=== PATIENT | female | born 1935 | race Caucasian/White ===

== ENCOUNTER 2017-07-06 12:39 | Emergency (ER) | payer MEDICARE, BC ==
[2017-07-06 13:10] LABS: #Basophils 0.1 thou/uL (0.0-0.2); #Eosinphils 0.1 thou/uL (0.0-0.7); #Lymphocytes 1.8 thou/uL (1.20-3.40); #Monocytes 0.8 thou/uL (0.11-0.59); #Neutrophils 5.3 thou/uL (1.40-6.50); %Basophils 0.9 % (0.0-1.0); %Eosinophils 1.1 % (0.0-10.0); %Lymphocytes 22.6 % (21.0-51.0); %Monocytes 9.5 % (0.0-10.0); Hematocrit 33.9 % (36.0-47.0); Mean Platelet Volume 5.4 fL (7.4-10.4); Red Blood Cell (RBC) Count 3.51 mill/uL (4.20-5.40); White Blood Cell (WBC) Count 8.1 thou/uL (4.8-10.8)
[2017-07-06 13:32] LABS: ALT (SGPT) 8 U/L (8-55); AST (SGOT) 24 U/L (5-34); Alkaline Phosphatase 59 U/L (40-150); Anion Gap 13 mmol/L (10-20); BUN (Urea Nitrogen) 13 mg/dL (9.8-20.1); Bilirubin, Total 0.3 mg/dL (0.2-1.2); Calc. Creatinine Clearance 0 mL/min (70-130); Calcium 8.9 mg/dL (7.8-10.44); Carbon Dioxide 25 mmol/L (23-31); Chloride 100 mmol/L (98-107); Estimated GFR-MDRD 59; Globulin 2.5 g/dL (2.4-3.5); Protein, Total 6.5 g/dL (6.0-8.3)
[2017-07-06 13:37] LABS: Troponin I 0.019 ng/mL (< 0.028)
--- NOTE | 2017-07-06 13:40 | RAD ---
1 VIEW CHEST: Date: 07/06/17 COMPARISON: 01/25/17, 05/26/17. HISTORY: Past medical history of dyspnea. FINDINGS: Atherosclerosis of aorta. Stable cardiac silhouette. Pulmonary vessels and hilum are normal. Costoph renic angles are clear. Stable hyperinflation. No consolidation or pneumothorax. Cervical fusion cheo dware is noted. IMPRESSION: Hyperinflation. Chronic changes. POS: [facility]
== END 2017-07-06 14:53 | disposition home or self-care (01) ==
LOC: ERS 12:39
DX: J44.9 Chronic obstructive pulmonary disease, unspecified (principal); R60.0 Localized edema; I50.9 Heart failure, unspecified; F17.210 Nicotine dependence, cigarettes, uncomplicated
CPT/HCPCS: 71010; 80053; 82553; 83880; 84484; 85025; 93005; 94760

== ENCOUNTER 2017-08-05 10:29 | Outpatient (CLI) | payer MEDICARE, BC ==
--- NOTE | 2017-08-05 11:03 | RAD ---
FRONTAL AND LATERAL IMAGING CHEST: Date: 08-05-17 Comparison: 05-26-17 History: Shortness of breath. FINDINGS: Lungs are hyperinflated, evidence of air trapping. There are prominent emphysematous changes seen th roughout both lungs, not significantly changed. No pneumothorax, pleural fluid, lobar consolidation or alveolar edema. IMPRESSION: Interstitial prominence and pulmonary hyperinflation suggests COPD in the proper clinical setting. N o definite interval change. POS: [facility]
== END 2017-08-05 10:30 | disposition home or self-care (01) ==
LOC: RAD 10:29
PROVIDERS: ATTEND Internal Medicine Pulmonary Disease
DX: R06.00 Dyspnea, unspecified (principal)
CPT/HCPCS: 71020

== ENCOUNTER 2017-08-29 15:49 | Inpatient (IN) | payer MEDICARE, BC ==
[2017-08-29 16:42] LABS: #Basophils 0.1 thou/uL (0.0-0.2); #Eosinphils 0.1 thou/uL (0.0-0.7); #Lymphocytes 1.2 thou/uL (1.20-3.40); #Monocytes 0.8 thou/uL (0.11-0.59); #Neutrophils 8.1 thou/uL (1.40-6.50); %Basophils 0.6 % (0.0-1.0); %Eosinophils 1.2 % (0.0-10.0); %Lymphocytes 11.6 % (21.0-51.0); %Monocytes 7.4 % (0.0-10.0); Hematocrit 33.1 % (36.0-47.0); Mean Platelet Volume 5.4 fL (7.4-10.4); Red Blood Cell (RBC) Count 3.46 mill/uL (4.20-5.40); White Blood Cell (WBC) Count 10.2 thou/uL (4.8-10.8)
[2017-08-29] MEDS ORDERED: Water For Inject, Bacteriostat 30 ML ONE (16:52)
[2017-08-29] MEDS ORDERED: methylPREDNISolone Sod Succ/PF 125 MG/2 ML VIAL ONE (16:52)
[2017-08-29 16:55] LABS: Lactic Acid - Sepsis 1.3 mmol/L (0.5-2.2)
[2017-08-29 17:01] LABS: ALT (SGPT) 15 U/L (8-55); AST (SGOT) 33 U/L (5-34); Alkaline Phosphatase 75 U/L (40-150); Anion Gap 13 mmol/L (10-20); BUN (Urea Nitrogen) 14 mg/dL (9.8-20.1); Bilirubin, Total 0.2 mg/dL (0.2-1.2); CK (CPK) 73 U/L (29-168); Calc. Creatinine Clearance 0 mL/min (70-130); Calcium 9.3 mg/dL (7.8-10.44); Carbon Dioxide 29 mmol/L (23-31); Chloride 96 mmol/L (98-107); Estimated GFR-MDRD 44; Globulin 2.9 g/dL (2.4-3.5); Protein, Total 7.2 g/dL (6.0-8.3)
[2017-08-29 17:05] LABS: Troponin I 0.052 ng/mL (< 0.028)
--- NOTE | 2017-08-29 17:46 | RAD ---
CHEST TWO VIEWS: 08/29/17 HISTORY: Cough. COMPARISON: 08/05/17. FINDINGS: The cardiac silhouette is upper limits of normal. Lungs remain hyperinflated. Extensive parenchymal s carring at the lung bases, left greater than right is similar in appearance to the prior study, with blunting of the left lateral costophrenic angle. Mediastinum is midline with aortic calcification and postoperative changes. There are also postoperative changes of the cervical spine. No lobar consolid ation, pneumothorax or pleural fluid are visible. IMPRESSION: COPD, postoperative changes, and other chronic type findings are stable. POS: [facility]
[2017-08-29] MEDS ORDERED: Albuterol Sulfate 2.5 mg/0.5 ml Neb ONE (18:00)
[2017-08-29] MEDS ORDERED: Ondansetron HCl/PF 4 MG/2 ML Vial IVP PRN (18:29)
[2017-08-29] MEDS ORDERED: Senokot 8.6 MG TAB PO PRN (18:29)
[2017-08-29] MEDS ORDERED: Bisacodyl 5 MG TAB PO PRN (18:29)
[2017-08-29 20:03] LABS: Troponin I 0.053 ng/mL (< 0.028)
[2017-08-29 22:06] VITALS: BMI 18.1
[2017-08-29 22:55] LABS: Troponin I 0.037 ng/mL (< 0.028)
--- NOTE | 2017-08-30 01:59 | HP ---
CHIEF COMPLAINT: Shortness of breath with cough x1 week. HISTORY OF PRESENT ILLNESS: This is a 81-year-old female who has a past medical history significant for COPD, non-oxygen dependent as well as hypertension as well as nicotine dependence, who presents t o the hospital due to shortness of breath and cough for the past 1 week. The patient states that the cough and shortness of breath has been getting progressively worse over the past couple of weeks. T he patient states that the sputum production has worsened and the color of the sputum has changed to yellowish greenish in color. Along with that she has been having shortness of breath that was curren tly on exertion, but now is occurring at rest. She says that she tried using inhalers at home with n o relief so because it was not getting better. She decided to come to the hospital for further evalu ation and management. She denies any chest pain, fevers, chills or palpitations at this time. She a lso denies any orthopnea or lower extremity swelling. PAST MEDICAL HISTORY: As stated. See HPI. Other past medical history includes lung cancer that was diagnosed approximately 15 years ago. PAST SURGICAL HISTORY: Includes hysterectomy as well as appendectomy and tonsillectomy. FAMILY HISTORY: Significant for liver cancer as well as cerebrovascular disease and lung cancer. SOCIAL HISTORY: The patient still continues to smoke. Denies any recreational drug use or alcohol u se. REVIEW OF SYSTEMS: A 14-point review of systems were reviewed and were negative other than what was mentioned in the HPI. HOME MEDICATIONS: at this time. PHYSICAL EXAMINATION: VITAL SIGNS: Blood pressure was 154/74, pulse 100, respiratory rate was 18, temperature was 98, faye ent was saturating 99% oxygen on 2 liters nasal cannula. GENERAL: The patient appeared to be in mild distress, was alert, awake, oriented x3, appeared uncomf ortable, was alert and was able to engage in the conversation during the time of the examination. HEENT: HEAD: Normocephalic, atraumatic. Eyes: Pupils are round and reactive to light. Extraocula r muscles are intact. Conjunctivae was pink. Sclerae was nonicteric. Mouth: Oral mucosa is pink a nd moist. No erythematous was noted. NECK: Neck was soft and supple, no JVD, no carotid bruits, lymphadenopathy. CARDIOVASCULAR: Regular rate and rhythm. S1, S2 sounds were heard. RESPIRATORY: The patient had diffuse bilateral significant wheezing throughout. The patient was not use any accessory muscles at this time. ABDOMEN: Positive bowel sounds, soft, nontender, nondistended. EXTREMITIES: Pulses were 2+ both dorsalis and radial pulse. NEUROLOGIC: Cranial nerves II-XII grossly intact. LABORATORY DATA: White blood cell count was 10.2, hemoglobin 11.0, hematocrit was 33.1, platelet cou nt was 577. Sodium was 134, potassium 4.2, chloride was 96, bicarbonate was 29, BUN was 14, creatini ne was 1.19. Troponin was 0.52. BNP was 263. Chest x-ray did not show any acute abnormalities and otherwise was suggestive of COPD. ASSESSMENT AND PLAN: 1. Shortness of breath with cough, likely secondary to chronic obstructive pulmonary disease exacerb ation. 2. Mildly elevated troponins, likely secondary to #1. 3. Hypertension. 4. Nicotine dependence. The patient is currently hemodynamically stable. She states that she is doing slightly better than w hen she initially came in. We will continue with Solu-Medrol IV q.6 hours as well as DuoNebs schedul ed as well as p.r.n. We will also start the patient on IV antibiotics for the COPD exacerbation. We will place the patient on telemetry. We will also trend troponins, although I do believe this is li reid secondary to chronic obstructive pulmonary disease exacerbation. We will monitor accordingly. We will continue to educate the patient on the importance of tobacco cessation and we will reconcile medication at the medicine reconciliation.
[2017-08-30 06:22] LABS: #Lymphocytes 0.2 thou/uL (1.20-3.40); #Monocytes 0.1 thou/uL (0.11-0.59); #Neutrophils 5.7 thou/uL (1.40-6.50); %Eosinophils 0.1 % (0.0-10.0); %Lymphocytes 3.4 % (21.0-51.0); %Monocytes 1.2 % (0.0-10.0); Hematocrit 29.5 % (36.0-47.0); Mean Platelet Volume 5.6 fL (7.4-10.4); Red Blood Cell (RBC) Count 3.08 mill/uL (4.20-5.40)
[2017-08-30 06:38] LABS: Anion Gap 8 mmol/L (10-20); BUN (Urea Nitrogen) 13 mg/dL (9.8-20.1); Calc. Creatinine Clearance 48 mL/min (70-130); Calcium 8.5 mg/dL (7.8-10.44); Carbon Dioxide 32 mmol/L (23-31); Chloride 95 mmol/L (98-107); Estimated GFR-MDRD 61
[2017-08-30] MEDS: Enoxaparin Sodium 40 MG/0.4 ML SYRINGE SC SCH (08:28)
[2017-08-30] MEDS ORDERED: FLU VACC TS2017-18 (>65YR) 0.5 ML SYRINGE IM ONE (09:00)
[2017-08-30] MEDS ORDERED: Non-Formulary Item 1 EACH (Ondansetron Hcl [Zofran] 4 MG) PO PRN (12:32)
[2017-08-30] MEDS ORDERED: Ondansetron ODT 4 MG TAB PO PRN (12:42)
--- NOTE | 2017-08-30 12:50 | PDOC.PN ---
- Subjective Encounter Start Date: 08/30/17 Encounter Start Time: 08:40 Pt seen for followup re: COPD exacerbation. Still has SOBOE, slightly better. Cough+. No nausea or vomiting. - Objective MAR Reviewed: Yes Vital Signs & Weight: Vital Signs (12 hours) Temp Pulse Resp BP Pulse Ox 08/30/17 11:42 84 18 99 08/30/17 08:30 98.2 F 85 18 162/73 H 100 08/30/17 06:25 80 16 97 08/30/17 04:00 97.7 F 79 18 165/70 H 96 Weight Weight 130 lb I&O: 08/29/17 08/30/17 08/31/17 06:59 06:59 06:59 Intake Total 850 Output Total 1300 Balance -450 Result Diagrams: 08/30/17 05:07 08/30/17 05:07 EKG Reviewed by me: Yes (Tele: NSR) Phys Exam - Physical Examination Constitutional: NAD HEENT: PERRLA, moist MMs, sclera anicteric, oral pharynx no lesions Neck: no nodes, no JVD, supple, full ROM Respiratory: no wheezing, no rales, wheezing present Cardiovascular: RRR, no rub Gastrointestinal: soft, non-tender, positive bowel sounds Musculoskeletal: pulses present Neurological: moves all 4 limbs Lymphatic: no nodes Psychiatric: normal affect, A&O x 3 Skin: no rash, normal turgor, cap refill <2 seconds Dx/Plan (1) COPD exacerbation Code(s): J44.1 - CHRONIC OBSTRUCTIVE PULMONARY DISEASE W (ACUTE) EXACERBATION Status: Acute (2) Acute and chronic respiratory failure Code(s): J96.20 - ACUTE AND CHR RESP FAILURE, UNSP W HYPOXIA OR HYPERCAPNIA Status: Acute (3) Elevated troponin Code(s): R74.8 - ABNORMAL LEVELS OF OTHER SERUM ENZYMES Status: Acute (4) HTN (hypertension) Code(s): I10 - ESSENTIAL (PRIMARY) HYPERTENSION Status: Chronic (5) GERD (gastroesophageal reflux disease) Code(s): K21.9 - GASTRO-ESOPHAGEAL REFLUX DISEASE WITHOUT ESOPHAGITIS Status: Chronic (6) Tobacco abuse Code(s): Z72.0 - TOBACCO USE Status: Chronic - Plan continue antibiotics, PT/OT, out of bed/ambulate, DVT proph w/lovenox * . Continue oxygen, steroids, bronchodilators and antibiotics. Consult PCCM. Monitor vital signs, titrate antihypertensives as needed. Check 2D echo to r/o regional wall motion abnormalities. Continue nicotine replacement therapy. Review of Systems - Review of Systems Constitutional: negative: Fever, Chills, Sweats, Weakness, Malaise Respiratory: Cough, Shortness of Breath, SOB with Excertion, Sputum. negative: Dry, Hemoptysis, Pleuritic Pain, Wheezing Cardiovascular: negative: Chest Pain, Palpitations, Orthopnea, Paroxysmal Noc. Dyspnea, Edema, Light Headedness Gastrointestinal: negative: Nausea, Vomiting, Abdominal Pain, Diarrhea, Constipation, Melena, Hematochezia Genitourinary: negative: Dysuria, Frequency, Incontinence, Hematuria, Retention - Medications/Allergies Allergies/Adverse Reactions: Allergies Allergy/AdvReac Type Severity Reaction Status Date / Time clarithromycin [From Biaxin] Allergy Diarrhea Verified 01/25/17 17:39 Penicillins Allergy UNKNOWN Verified 01/25/17 17:39 Sulfa (Sulfonamide Allergy DIZZINESS Verified 01/25/17 17:39 Antibiotics) Medications: Current Medications Acetaminophen (Tylenol) 650 mg PO Q4H PRN PRN Reason: Headache/Fever or Pain Albuterol/Ipratropium (Duoneb) 3 ml NEB [id number] [facility] Last Admin: 08/30/17 11:42 Dose: 3 ml Albuterol/Ipratropium (Duoneb) 3 ml NEB Q4H PRN PRN Reason: SOB &/or Wheezing Bisacodyl (Dulcolax) 10 mg PO DAILYPRN PRN PRN Reason: Constipation Diltiazem HCl (Cardizem Cd) 240 mg PO 2000 [facility] Enoxaparin Sodium (Lovenox) 40 mg SC 0900 [facility] Last Admin: 08/30/17 08:28 Dose: 40 mg Furosemide (Lasix) 20 mg PO DAILY [facility] Levofloxacin 750 mg/ Device 150 mls @ 100 mls/hr IVPB Q24HR [facility] Methylprednisolone Sodium Succinate (Solu-Medrol) 40 mg IVP Q6HR [facility] Last Admin: 08/30/17 11:56 Dose: 40 mg Mometasone Furoate/Formoterol Fumar (Dulera 200 Mcg/5 Mcg Inhaler) 2 puff INH BID-RT [facility] Nicotine (Nicoderm Patch) 21 mg TD DAILY [facility] Ondansetron HCl (Zofran) 4 mg IVP Q6H PRN PRN Reason: Nausea/Vomiting Ondansetron HCl (Zofran Odt) 4 mg PO Q4H PRN PRN Reason: Nausea/Vomiting Pantoprazole Sodium (Protonix) 40 mg PO DAILY [facility] Paroxetine HCl (Paxil) 20 mg PO DAILY [facility] Paroxetine HCl (Paxil) 20 mg PO HS [facility] Senna (Senokot) 2 tab PO HSPRN PRN PRN Reason: Constipation Sodium Chloride (Flush - Normal Saline) 10 ml IVF Q12HR [facility] Sodium Chloride (Flush - Normal Saline) 10 ml IVF PRN PRN PRN Reason: Saline Flush
[2017-08-30] MEDS: Acetaminophen 325 MG TAB PO PRN ×2 (13:34→21:22)
[2017-08-30] MEDS ORDERED: guaiFENesin/Dextromethorphan 10 ML UDCUP PO PRN (14:36)
--- NOTE | 2017-08-30 17:00 | CON ---
DATE OF CONSULTATION: 08/30/2017 CONSULTING PHYSICIAN: Simone Fisher M.D. REASON FOR CONSULTATION: COPD exacerbation. HISTORY OF PRESENT ILLNESS: The patient is a 81-year-old female who was admitted to the hospital yes terday with a 2-week history of increasing shortness of breath and congestion. She is a pack and a h gabriela per day smoker who was refused to quit in the past. She has been taking prednisone and the dose is 10 mg daily at home. She has been using Symbicort, albuterol and ipratropium. She has not been t aking antibiotics at home. She has a dry cough, has difficulty clearing secretions. PAST MEDICAL HISTORY: 1. COPD. 2. Hypertension. 3. Bronchogenic lung cancer. PAST SURGICAL HISTORY: Hysterectomy, appendectomy, tonsillectomy, lobectomy. FAMILY MEDICAL HISTORY: Remarkable for liver cancer, stroke and lung cancer. MEDICATIONS: Prior to admission, these were reviewed. See chart. SOCIAL HISTORY: Smoking history as outlined above. She does not consume alcohol, does not use illic it drugs. REVIEW OF SYSTEMS: Ten-point review of systems is otherwise negative. PHYSICAL EXAMINATION: VITAL SIGNS: Temperature 97.9, pulse 94, respirations 18, O2 sat 96%, blood pressure 169/81. GENERAL: She is awake and alert. HEENT: Pupils react. Sclerae are icteric. Oropharynx clear. NECK: No JVD. LUNGS: Harsh bilateral expiratory wheezing, no accessory muscle use. CARDIOVASCULAR: S1, S2 regular. ABDOMEN: Soft, nontender. EXTREMITIES: No clubbing, cyanosis, or edema. LABORATORY DATA: White blood cell count 6, hematocrit 29.5, platelet count 442. Sodium 131, potassi um 4.1, chloride 95, CO2 32, BUN 13, creatinine 0.8, glucose 174. Troponin 0.037. Chest x-ray shows hyperinflation. ASSESSMENT: 1. Chronic obstructive pulmonary disease exacerbations 2. Tobacco abuse. PLAN: I agree with treatment with steroids, nebulization therapy, and antibiotics. We will be happy to follow.
[2017-08-30] MEDS: Mometasone/Formoterol 120 PUFF INHALER INH SCH (18:54)
[2017-08-30] MEDS: PARoxetine 20 MG TAB PO SCH (21:00)
[2017-08-30] MEDS ORDERED: Non-Formulary Item 1 EACH (Budesonide-Formoterol [Symbicort 160-4.5] 2 PUFF) INH SCH (21:00)
[2017-08-30] MEDS: Guaifenesin DM 100-10/5 ML UDCUP PO PRN (21:12)
[2017-08-31] MEDS: Mometasone/Formoterol 120 PUFF INHALER INH SCH ×2 (07:25→19:40)
[2017-08-31] MEDS ORDERED: Non-Formulary Item 1 EACH (Lansoprazole [Prevacid] 30 MG) PO SCH (09:00)
[2017-08-31] MEDS: Furosemide 20 MG TAB PO SCH (09:42)
[2017-08-31] MEDS: Nicotine 21 MG PATCH TD SCH (09:42)
[2017-08-31] MEDS: PARoxetine 20 MG TAB PO SCH ×2 (09:42→20:37)
[2017-08-31] MEDS: Enoxaparin Sodium 40 MG/0.4 ML SYRINGE SC SCH (09:43)
[2017-08-31 10:19] LABS: Mean Platelet Volume 5.7 fL (7.4-10.4)
--- NOTE | 2017-08-31 10:21 | PRG ---
DATE OF SERVICE: 08/31/2017 She is doing better. PHYSICAL EXAMINATION: VITAL SIGNS: Temperature 98.3, pulse 106, respirations 20, O2 saturation 93% on 2 liters, blood pres sure 174/85. HEENT: Unremarkable. NECK: No JVD. LUNGS: A few expiratory wheezes. CARDIAC: S1 and S2 regular. ABDOMEN: Soft. EXTREMITIES: No edema. ASSESSMENT: Chronic obstructive pulmonary disease exacerbation. RECOMMENDATIONS: Continue current treatment and hopefully she can be discharged tomorrow. I think s he can be moved off telemetry.
[2017-08-31 10:31] LABS: #Basophils 0.1 thou/uL (0.0-0.2); #Lymphocytes 0.1 thou/uL (1.20-3.40); #Monocytes 0.1 thou/uL (0.11-0.59); #Neutrophils 9.8 thou/uL (1.40-6.50); %Basophils 0.7 % (0.0-1.0); %Eosinophils 0.2 % (0.0-10.0); %Lymphocytes 0.9 % (21.0-51.0); %Monocytes 1.1 % (0.0-10.0); Red Blood Cell (RBC) Count 3.35 mill/uL (4.20-5.40); White Blood Cell (WBC) Count 10.1 thou/uL (4.8-10.8)
[2017-08-31 10:43] LABS: Anion Gap 15 mmol/L (10-20); BUN (Urea Nitrogen) 17 mg/dL (9.8-20.1); Calc. Creatinine Clearance 42 mL/min (70-130); Calcium 8.7 mg/dL (7.8-10.44); Carbon Dioxide 27 mmol/L (23-31); Chloride 92 mmol/L (98-107); Estimated GFR-MDRD 53
[2017-08-31 10:50] LABS: Troponin I 0.026 ng/mL (< 0.028)
--- NOTE | 2017-08-31 11:41 | PDOC.PN ---
- Subjective Encounter Start Date: 08/31/17 Encounter Start Time: 07:40 Pt seen for followup re: COPD exacerbation. Denies chest pain. Ongoing cough. SOBOE+. No fevers. - Objective MAR Reviewed: Yes Vital Signs & Weight: Vital Signs (12 hours) Temp Pulse Resp BP Pulse Ox 08/31/17 10:44 95 22 H 08/31/17 08:00 98.3 F 106 H 20 174/85 H 93 L 08/31/17 07:27 80 18 08/31/17 04:12 97.8 F 72 18 140/67 94 L Weight Weight 130 lb I&O: 08/30/17 08/31/17 09/01/17 06:59 06:59 06:59 Intake Total 850 1880 Output Total 1300 1100 Balance -450 780 Result Diagrams: 08/31/17 09:54 08/31/17 09:54 EKG Reviewed by me: Yes (Tele: NSR) Phys Exam - Physical Examination Constitutional: NAD HEENT: moist MMs, oral pharynx no lesions Neck: supple, full ROM Respiratory: no rales, no rhonchi, wheezing present Cardiovascular: RRR Gastrointestinal: soft, non-tender Musculoskeletal: pulses present Neurological: moves all 4 limbs Psychiatric: normal affect Skin: no rash Dx/Plan (1) COPD exacerbation Code(s): J44.1 - CHRONIC OBSTRUCTIVE PULMONARY DISEASE W (ACUTE) EXACERBATION Status: Acute (2) Acute and chronic respiratory failure Code(s): J96.20 - ACUTE AND CHR RESP FAILURE, UNSP W HYPOXIA OR HYPERCAPNIA Status: Acute (3) HTN (hypertension) Code(s): I10 - ESSENTIAL (PRIMARY) HYPERTENSION Status: Chronic (4) GERD (gastroesophageal reflux disease) Code(s): K21.9 - GASTRO-ESOPHAGEAL REFLUX DISEASE WITHOUT ESOPHAGITIS Status: Chronic (5) Tobacco abuse Code(s): Z72.0 - TOBACCO USE Status: Chronic (6) Elevated troponin Code(s): R74.8 - ABNORMAL LEVELS OF OTHER SERUM ENZYMES Status: Resolved - Plan continue antibiotics, PT/OT, out of bed/ambulate, DVT proph w/lovenox * . Continue oxygen, steroids, bronchodilators and antibiotics. Ambulate pt. 2D echo pending. Appreciate pulmonology input. Review of Systems - Review of Systems Constitutional: negative: Fever, Chills, Sweats, Weakness, Malaise Respiratory: Cough, Shortness of Breath, SOB with Excertion, Sputum, Wheezing. negative: Dry, Hemoptysis, Pleuritic Pain Cardiovascular: negative: Chest Pain, Palpitations, Orthopnea, Paroxysmal Noc. Dyspnea, Edema, Light Headedness - Medications/Allergies Allergies/Adverse Reactions: Allergies Allergy/AdvReac Type Severity Reaction Status Date / Time clarithromycin [From Biaxin] Allergy Diarrhea Verified 01/25/17 17:39 Penicillins Allergy UNKNOWN Verified 01/25/17 17:39 Sulfa (Sulfonamide Allergy DIZZINESS Verified 01/25/17 17:39 Antibiotics) Medications: Current Medications Acetaminophen (Tylenol) 650 mg PO Q4H PRN PRN Reason: Headache/Fever or Pain Last Admin: 08/30/17 21:22 Dose: 650 mg Albuterol/Ipratropium (Duoneb) 3 ml NEB [id number] Last Admin: 08/31/17 10:44 Dose: 3 ml Bisacodyl (Dulcolax) 10 mg PO DAILYPRN PRN PRN Reason: Constipation Diltiazem HCl (Cardizem Cd) 240 mg PO 1999 [facility] Last Admin: 08/30/17 20:59 Dose: 240 mg Enoxaparin Sodium (Lovenox) 40 mg SC 09 [facility] Last Admin: 08/31/17 09:43 Dose: 40 mg Furosemide (Lasix) 20 mg PO DAILY [facility] Last Admin: 08/31/17 09:42 Dose: 20 mg Guaifenesin/Dextromethorphan (Robitussin Dm) 10 ml PO Q6H PRN PRN Reason: Cough Last Admin: 08/30/17 21:12 Dose: 10 ml Levofloxacin 750 mg/ Device 150 mls @ 100 mls/hr IVPB Q24HR [facility] Last Admin: 08/30/17 21:03 Dose: 150 mls Methylprednisolone Sodium Succinate (Solu-Medrol) 40 mg IVP Q6HR [facility] Last Admin: 08/31/17 05:57 Dose: 40 mg Mometasone Furoate/Formoterol Fumar (Dulera 200 Mcg/5 Mcg Inhaler) 2 puff INH BID-RT [facility] Last Admin: 08/31/17 07:25 Dose: 2 puff Nicotine (Nicoderm Patch) 21 mg TD DAILY [facility] Last Admin: 08/31/17 09:42 Dose: 21 mg Ondansetron HCl (Zofran) 4 mg IVP Q6H PRN PRN Reason: Nausea/Vomiting Ondansetron HCl (Zofran Odt) 4 mg PO Q4H PRN PRN Reason: Nausea/Vomiting Pantoprazole Sodium (Protonix) 40 mg PO DAILY [facility] Last Admin: 08/31/17 09:42 Dose: 40 mg Paroxetine HCl (Paxil) 20 mg PO DAILY [facility] Last Admin: 08/31/17 09:42 Dose: 20 mg Paroxetine HCl (Paxil) 20 mg PO HS [facility] Last Admin: 08/30/17 21:00 Dose: 20 mg Senna (Senokot) 2 tab PO HSPRN PRN PRN Reason: Constipation Sodium Chloride (Flush - Normal Saline) 10 ml IVF Q12HR [facility] Last Admin: 08/31/17 10:47 Dose: 10 ml Sodium Chloride (Flush - Normal Saline) 10 ml IVF PRN PRN PRN Reason: Saline Flush
[2017-08-31] MEDS: Guaifenesin DM 100-10/5 ML UDCUP PO PRN (16:21)
[2017-08-31] MEDS: Acetaminophen 325 MG TAB PO PRN (22:31)
[2017-08-31] MEDS ORDERED: Nystatin 500,000 UNITS/5 ML UDCUP SSW SCH (23:15)
[2017-09-01 05:39] LABS: #Lymphocytes 0.3 thou/uL (1.20-3.40); #Monocytes 0.2 thou/uL (0.11-0.59); #Neutrophils 9.3 thou/uL (1.40-6.50); %Eosinophils 0.1 % (0.0-10.0); %Lymphocytes 3.4 % (21.0-51.0); %Monocytes 2.1 % (0.0-10.0); Hematocrit 29.8 % (36.0-47.0); Mean Platelet Volume 5.7 fL (7.4-10.4); Red Blood Cell (RBC) Count 3.13 mill/uL (4.20-5.40); White Blood Cell (WBC) Count 9.9 thou/uL (4.8-10.8)
[2017-09-01 06:00] LABS: Anion Gap 10 mmol/L (10-20); BUN (Urea Nitrogen) 20 mg/dL (9.8-20.1); Calc. Creatinine Clearance 47 mL/min (70-130); Calcium 8.6 mg/dL (7.8-10.44); Carbon Dioxide 32 mmol/L (23-31); Chloride 94 mmol/L (98-107); Estimated GFR-MDRD 60
[2017-09-01] MEDS: Mometasone/Formoterol 120 PUFF INHALER INH SCH ×2 (07:08→18:53)
[2017-09-01] MEDS ORDERED: HYDROcodone/Acetaminophen 5/325 mg Tablet PO PRN (07:43)
[2017-09-01] MEDS: Enoxaparin Sodium 40 MG/0.4 ML SYRINGE SC SCH (07:54)
[2017-09-01] MEDS: Nystatin 500,000 UNITS/5 ML UDCUP SSW SCH ×4 (07:55→21:37)
[2017-09-01] MEDS: Nicotine 21 MG PATCH TD SCH (07:55)
[2017-09-01] MEDS: PARoxetine 20 MG TAB PO SCH ×2 (07:56→21:37)
[2017-09-01] MEDS: Furosemide 20 MG TAB PO SCH (08:17)
[2017-09-01] MEDS: Guaifenesin DM 100-10/5 ML UDCUP PO PRN ×3 (09:10→23:18)
--- NOTE | 2017-09-01 09:32 | PRG ---
DATE OF SERVICE: 09/01/2017 SUBJECTIVE: Ms. Salas having coughing fit this morning. OBJECTIVE: VITAL SIGNS: On exam, temperature is 98.6, pulse 95, respiration 16, O2 sat 95%, blood pressure 180/ 95. HEENT: Unremarkable. NECK: No JVD. LUNGS: Diffuse mild wheezing. CARDIAC: S1 and S2 regular. ABDOMEN: Soft. EXTREMITIES: No edema. ASSESSMENT: Chronic obstructive pulmonary disease with exacerbation. PLAN: Continue nebulization treatments, antibiotics, and steroids. She is not ready for discharge.
--- NOTE | 2017-09-01 11:31 | PDOC.PN ---
- Subjective Encounter Start Date: 09/01/17 Encounter Start Time: 10:30 -: old records requested/rev Patient seen and examined. No overnight events, she is short of breath, not able to talk in full sentence after walk - Objective MAR Reviewed: Yes Vital Signs & Weight: Vital Signs (12 hours) Temp Pulse Resp BP Pulse Ox 09/01/17 10:18 83 24 H 80 L 09/01/17 08:00 98.6 F 95 16 188/95 H 96 09/01/17 07:10 93 L 09/01/17 07:09 83 16 93 L 09/01/17 07:08 83 16 93 L 09/01/17 04:00 98.1 F 67 20 155/77 H 94 L 09/01/17 00:00 98.1 F 85 20 172/81 H Weight Admit Weight 130 lb Weight 130 lb I&O: 08/31/17 09/01/17 09/02/17 06:59 06:59 06:59 Intake Total 1880 240 Output Total 1100 Balance 780 240 Result Diagrams: 09/01/17 04:12 09/01/17 04:12 Phys Exam - Physical Examination Constitutional: NAD HEENT: PERRLA, moist MMs, sclera anicteric Neck: no JVD, supple Respiratory: no wheezing, no rales, no rhonchi Cardiovascular: RRR, no significant murmur, no rub Gastrointestinal: soft, non-tender, no distention, positive bowel sounds Musculoskeletal: no edema, pulses present Neurological: non-focal, normal sensation Psychiatric: normal affect, A&O x 3 Skin: no rash, normal turgor Dx/Plan (1) Acute and chronic respiratory failure with hypoxia Code(s): J96.21 - ACUTE AND CHRONIC RESPIRATORY FAILURE WITH HYPOXIA Status: Acute (2) COPD exacerbation Code(s): J44.1 - CHRONIC OBSTRUCTIVE PULMONARY DISEASE W (ACUTE) EXACERBATION Status: Acute (3) Hyponatremia Code(s): E87.1 - HYPO-OSMOLALITY AND HYPONATREMIA Status: Acute (4) Anemia, normocytic normochromic Code(s): D64.9 - ANEMIA, UNSPECIFIED Status: Chronic (5) Anxiety and depression Code(s): F41.8 - OTHER SPECIFIED ANXIETY DISORDERS Status: Chronic (6) Diastolic dysfunction Code(s): I51.9 - HEART DISEASE, UNSPECIFIED Status: Chronic (7) GERD (gastroesophageal reflux disease) Code(s): K21.9 - GASTRO-ESOPHAGEAL REFLUX DISEASE WITHOUT ESOPHAGITIS Status: Chronic (8) HTN (hypertension) Code(s): I10 - ESSENTIAL (PRIMARY) HYPERTENSION Status: Chronic (9) Lung cancer Code(s): C34.90 - MALIGNANT NEOPLASM OF UNSP PART OF UNSP BRONCHUS OR LUNG Status: Chronic (10) Protein-calorie malnutrition, moderate Code(s): E44.0 - MODERATE PROTEIN-CALORIE MALNUTRITION Status: Chronic (11) Tobacco abuse Code(s): Z72.0 - TOBACCO USE Status: Chronic (12) Elevated troponin Code(s): R74.8 - ABNORMAL LEVELS OF OTHER SERUM ENZYMES Status: Resolved - Plan cont current plan of care, plan discussed w/ family, continue antibiotics, respiratory therapy * continue selected home meds * medication reviewed as below * symptomatic treatment * continue current optimum medical therapy for COPD * she needs oxygen. Review of Systems - Review of Systems Constitutional: negative: Fever, Chills, Sweats, Weakness, Malaise, Other Eyes: negative: Pain, Vision Change, Conjunctivae Inflammation, Eyelid Inflammation, Redness, Other ENT: negative: Ear Pain, Ear Discharge, Nose Pain, Nose Discharge, Nose Congestion, Mouth Pain, Mouth Swelling, Throat Pain, Throat Swelling, Other Respiratory: Cough, Shortness of Breath. negative: Dry, Hemoptysis, SOB with Excertion, Pleuritic Pain, Sputum, Wheezing Cardiovascular: negative: Chest Pain, Palpitations, Orthopnea, Paroxysmal Noc. Dyspnea, Edema, Light Headedness, Other Gastrointestinal: negative: Nausea, Vomiting, Abdominal Pain, Diarrhea, Constipation, Melena, Hematochezia, Other Genitourinary: negative: Dysuria, Frequency, Incontinence, Hematuria, Retention , Other Musculoskeletal: negative: Neck Pain, Shoulder Pain, Arm Pain, Back Pain, Hand Pain, Leg Pain, Foot Pain, Other Skin: negative: Rash, Lesions, Faraz, Bruising, Other - Medications/Allergies Allergies/Adverse Reactions: Allergies Allergy/AdvReac Type Severity Reaction Status Date / Time clarithromycin [From Biaxin] Allergy Diarrhea Verified 01/25/17 17:39 Penicillins Allergy UNKNOWN Verified 01/25/17 17:39 Sulfa (Sulfonamide Allergy DIZZINESS Verified 01/25/17 17:39 Antibiotics) Medications: Current Medications Acetaminophen (Tylenol) 650 mg PO Q4H PRN PRN Reason: Headache/Fever or Pain Last Admin: 08/31/17 22:31 Dose: 650 mg Hydrocodone Bitart/Acetaminophen ([place] 5/325) 1 tab PO Q6H PRN PRN Reason: Pain Albuterol/Ipratropium (Duoneb) 3 ml NEB [id number] Last Admin: 09/01/17 10:18 Dose: 3 ml Bisacodyl (Dulcolax) 10 mg PO DAILYPRN PRN PRN Reason: Constipation Diltiazem HCl (Cardizem Cd) 240 mg PO 2000 [facility] Last Admin: 08/31/17 20:37 Dose: 240 mg Enoxaparin Sodium (Lovenox) 40 mg SC 0900 [facility] Last Admin: 09/01/17 07:54 Dose: 40 mg Furosemide (Lasix) 20 mg PO DAILY [facility] Last Admin: 09/01/17 08:17 Dose: 20 mg Guaifenesin/Dextromethorphan (Robitussin Dm) 10 ml PO Q6H PRN PRN Reason: Cough Last Admin: 09/01/17 09:10 Dose: 10 ml Levofloxacin 750 mg/ Device 150 mls @ 100 mls/hr IVPB Q24HR [facility] Last Admin: 08/31/17 20:36 Dose: 150 mls Methylprednisolone Sodium Succinate (Solu-Medrol) 40 mg IVP Q6HR [facility] Last Admin: 09/01/17 11:20 Dose: 40 mg Mometasone Furoate/Formoterol Fumar (Dulera 200 Mcg/5 Mcg Inhaler) 2 puff INH BID-RT [facility] Last Admin: 09/01/17 07:08 Dose: 2 puff Nicotine (Nicoderm Patch) 21 mg TD DAILY [facility] Last Admin: 09/01/17 07:55 Dose: 21 mg Nystatin (Mycostatin) 500,000 units SSW QID [facility] Last Admin: 09/01/17 07:55 Dose: 500,000 units Ondansetron HCl (Zofran) 4 mg IVP Q6H PRN PRN Reason: Nausea/Vomiting Ondansetron HCl (Zofran Odt) 4 mg PO Q4H PRN PRN Reason: Nausea/Vomiting Pantoprazole Sodium (Protonix) 40 mg PO DAILY [facility] Last Admin: 09/01/17 07:55 Dose: 40 mg Paroxetine HCl (Paxil) 20 mg PO DAILY [facility] Last Admin: 09/01/17 07:56 Dose: 20 mg Paroxetine HCl (Paxil) 20 mg PO HS [facility] Last Admin: 08/31/17 20:37 Dose: 20 mg Senna (Senokot) 2 tab PO HSPRN PRN PRN Reason: Constipation Sodium Chloride (Flush - Normal Saline) 10 ml IVF Q12HR [facility] Last Admin: 09/01/17 07:59 Dose: 10 ml Sodium Chloride (Flush - Normal Saline) 10 ml IVF PRN PRN PRN Reason: Saline Flush
[2017-09-02] MEDS: Guaifenesin DM 100-10/5 ML UDCUP PO PRN ×4 (05:44→23:05)
[2017-09-02] MEDS: Mometasone/Formoterol 120 PUFF INHALER INH SCH ×2 (08:26→18:27)
[2017-09-02] MEDS: Nystatin 500,000 UNITS/5 ML UDCUP SSW SCH ×4 (08:36→21:12)
[2017-09-02] MEDS: Nicotine 21 MG PATCH TD SCH (08:36)
[2017-09-02] MEDS: PARoxetine 20 MG TAB PO SCH ×2 (08:37→21:13)
[2017-09-02] MEDS: Furosemide 20 MG TAB PO SCH (08:37)
[2017-09-02] MEDS: Enoxaparin Sodium 40 MG/0.4 ML SYRINGE SC SCH (08:44)
--- NOTE | 2017-09-02 11:34 | PRG ---
DATE OF SERVICE: 09/02/2017 SUBJECTIVE: Ms. Salas is still struggling to breathe. OBJECTIVE: VITAL SIGNS: On exam, temperature 98.4, pulse 79, respirations 22, O2 sat 96% on 2 liters, blood pre ssure 150/67. HEENT: Unremarkable. NECK: No JVD. CHEST: Wheezing bilaterally. CARDIOVASCULAR: S1, S2 regular. ABDOMEN: Soft. EXTREMITIES: No edema. ASSESSMENT: Chronic obstructive pulmonary disease exacerbation. PLAN: Continue breathing treatments, steroids, and antibiotics. I think she needs several more days in the hospital.
--- NOTE | 2017-09-02 12:37 | PDOC.PN ---
- Subjective Encounter Start Date: 09/02/17 Encounter Start Time: 07:30 Subjective: still sob but better - Objective MAR Reviewed: Yes Vital Signs & Weight: Vital Signs (12 hours) Temp Pulse Resp BP Pulse Ox 09/02/17 10:55 79 22 H 96 09/02/17 10:50 98.4 F 79 16 150/67 H 96 09/02/17 08:24 92 22 H 92 L 09/02/17 08:00 96.9 F L 92 22 H 09/02/17 07:16 96.9 F L 85 85 H 164/77 H 18 L 09/02/17 02:57 24 H Weight Admit Weight 130 lb Weight 130 lb I&O: 09/01/17 09/02/17 09/03/17 06:59 06:59 06:59 Intake Total 720 Balance 720 Result Diagrams: 09/01/17 04:12 09/01/17 04:12 Phys Exam - Physical Examination HEENT: PERRLA, moist MMs Neck: no JVD, supple Respiratory: no wheezing, no rales rhonchi++ Cardiovascular: RRR, no significant murmur Gastrointestinal: soft, non-tender, positive bowel sounds Musculoskeletal: no edema, pulses present Neurological: non-focal, moves all 4 limbs Psychiatric: A&O x 3 Dx/Plan (1) Acute and chronic respiratory failure with hypoxia Code(s): J96.21 - ACUTE AND CHRONIC RESPIRATORY FAILURE WITH HYPOXIA Status: Resolved (2) COPD exacerbation Code(s): J44.1 - CHRONIC OBSTRUCTIVE PULMONARY DISEASE W (ACUTE) EXACERBATION Status: Acute (3) Hyponatremia Code(s): E87.1 - HYPO-OSMOLALITY AND HYPONATREMIA Status: Acute Comment: resolving (4) Anemia, normocytic normochromic Code(s): D64.9 - ANEMIA, UNSPECIFIED Status: Chronic (5) Anxiety and depression Code(s): F41.8 - OTHER SPECIFIED ANXIETY DISORDERS Status: Chronic (6) Diastolic dysfunction Code(s): I51.9 - HEART DISEASE, UNSPECIFIED Status: Chronic (7) GERD (gastroesophageal reflux disease) Code(s): K21.9 - GASTRO-ESOPHAGEAL REFLUX DISEASE WITHOUT ESOPHAGITIS Status: Chronic Qualifiers: Esophagitis presence: esophagitis presence not specified Qualified Code(s) : K21.9 - Gastro-esophageal reflux disease without esophagitis (8) HTN (hypertension) Code(s): I10 - ESSENTIAL (PRIMARY) HYPERTENSION Status: Chronic Qualifiers: Hypertension type: essential hypertension Qualified Code(s): I10 - Essential (primary) hypertension (9) Protein-calorie malnutrition, moderate Code(s): E44.0 - MODERATE PROTEIN-CALORIE MALNUTRITION Status: Chronic - Plan is on levaquin, iv steroids, nebs -: she is on 2lts nc (home dose) -: slowly mobilize pt as tolerated -: dc plan per pulm advice * . Review of Systems - Medications/Allergies Allergies/Adverse Reactions: Allergies Allergy/AdvReac Type Severity Reaction Status Date / Time clarithromycin [From Biaxin] Allergy Diarrhea Verified 01/25/17 17:39 Penicillins Allergy UNKNOWN Verified 01/25/17 17:39 Sulfa (Sulfonamide Allergy DIZZINESS Verified 01/25/17 17:39 Antibiotics) Medications: Current Medications Acetaminophen (Tylenol) 650 mg PO Q4H PRN PRN Reason: Headache/Fever or Pain Last Admin: 08/31/17 22:31 Dose: 650 mg Hydrocodone Bitart/Acetaminophen ([place] 5/325) 1 tab PO Q6H PRN PRN Reason: Pain Albuterol/Ipratropium (Duoneb) 3 ml NEB [id number] [facility] Last Admin: 09/02/17 10:55 Dose: 3 ml Arformoterol Tartrate (Brovana) 15 mcg NEB BID-RT NANY Bisacodyl (Dulcolax) 10 mg PO DAILYPRN PRN PRN Reason: Constipation Budesonide (Pulmicort Neb Solution) 0.5 mg INH BID-RT [facility] Diltiazem HCl (Cardizem Cd) 240 mg PO 2000 [facility] Last Admin: 09/01/17 21:36 Dose: 240 mg Enoxaparin Sodium (Lovenox) 40 mg SC 0900 [facility] Last Admin: 09/02/17 08:44 Dose: 40 mg Furosemide (Lasix) 20 mg PO DAILY [facility] Last Admin: 09/02/17 08:37 Dose: 20 mg Guaifenesin/Dextromethorphan (Robitussin Dm) 10 ml PO Q6H PRN PRN Reason: Cough Last Admin: 09/02/17 11:48 Dose: 10 ml Levofloxacin 750 mg/ Device 150 mls @ 100 mls/hr IVPB Q24HR [facility] Last Admin: 09/01/17 21:36 Dose: 150 mls Methylprednisolone Sodium Succinate (Solu-Medrol) 40 mg IVP Q6HR [facility] Last Admin: 09/02/17 11:44 Dose: 40 mg Mometasone Furoate/Formoterol Fumar (Dulera 200 Mcg/5 Mcg Inhaler) 2 puff INH BID-RT [facility] Last Admin: 09/02/17 08:26 Dose: 2 puff Nicotine (Nicoderm Patch) 21 mg TD DAILY [facility] Last Admin: 09/02/17 08:36 Dose: 21 mg Nystatin (Mycostatin) 500,000 units SSW QID [facility] Last Admin: 09/02/17 11:48 Dose: 500,000 units Ondansetron HCl (Zofran) 4 mg IVP Q6H PRN PRN Reason: Nausea/Vomiting Ondansetron HCl (Zofran Odt) 4 mg PO Q4H PRN PRN Reason: Nausea/Vomiting Pantoprazole Sodium (Protonix) 40 mg PO DAILY [facility] Last Admin: 09/02/17 08:37 Dose: 40 mg Paroxetine HCl (Paxil) 20 mg PO DAILY [facility] Last Admin: 09/02/17 08:37 Dose: 20 mg Paroxetine HCl (Paxil) 20 mg PO HS [facility] Last Admin: 09/01/17 21:37 Dose: 20 mg Senna (Senokot) 2 tab PO HSPRN PRN PRN Reason: Constipation Sodium Chloride (Flush - Normal Saline) 10 ml IVF Q12HR [facility] Last Admin: 09/02/17 08:37 Dose: 10 ml Sodium Chloride (Flush - Normal Saline) 10 ml IVF PRN PRN PRN Reason: Saline Flush
[2017-09-02] MEDS: Budesonide 0.5 MG/2 ML NEB INH SCH (18:30)
[2017-09-02] MEDS: Arformoterol 15 MCG/2 ML NEB NEB SCH (18:31)
[2017-09-03] MEDS: Acetaminophen 325 MG TAB PO PRN (00:10)
[2017-09-03] MEDS: Guaifenesin DM 100-10/5 ML UDCUP PO PRN (05:44)
[2017-09-03] MEDS: Budesonide 0.5 MG/2 ML NEB INH SCH ×2 (06:19→18:39)
[2017-09-03] MEDS: Mometasone/Formoterol 120 PUFF INHALER INH SCH ×2 (06:22→18:39)
[2017-09-03] MEDS: Arformoterol 15 MCG/2 ML NEB NEB SCH ×2 (06:34→18:38)
--- NOTE | 2017-09-03 09:39 | PRG ---
DATE OF SERVICE: 09/03/2017 Ms. Salas feels better and has no complaints. PHYSICAL EXAMINATION: VITAL SIGNS: Temperature is 98.2, pulse 80, respirations 18, O2 sat 93%, blood pressure 140/64. HEENT: Unremarkable. NECK: No JVD. LUNGS: Improved breath sounds with minimal wheezing. CARDIAC: S1 and S2 regular. ABDOMEN: Soft. EXTREMITIES: No edema. ASSESSMENT: 1. Chronic obstructive pulmonary disease exacerbation. 2. Severe deconditioning. PLAN: 1. She probably needs a rehab screen. 2. Reduce steroid dose because she is having headaches. 3. Can probably go home or to rehab tomorrow.
[2017-09-03] MEDS: PARoxetine 20 MG TAB PO SCH ×2 (09:45→20:45)
[2017-09-03] MEDS: Enoxaparin Sodium 40 MG/0.4 ML SYRINGE SC SCH (09:45)
[2017-09-03] MEDS: Nystatin 500,000 UNITS/5 ML UDCUP SSW SCH ×4 (09:45→20:45)
[2017-09-03] MEDS: Furosemide 20 MG TAB PO SCH (09:45)
[2017-09-03] MEDS: Nicotine 21 MG PATCH TD SCH (09:46)
--- NOTE | 2017-09-03 12:41 | PDOC.PN ---
- Subjective Encounter Start Date: 09/03/17 Encounter Start Time: 08:35 Subjective: still sob, is having hard time bringing up sputum - Objective MAR Reviewed: Yes Vital Signs & Weight: Vital Signs (12 hours) Temp Pulse Resp BP Pulse Ox 09/03/17 10:01 95 20 94 L 09/03/17 08:00 98.2 F 80 18 93 L 09/03/17 07:10 98.2 F 80 18 140/64 93 L 09/03/17 06:34 92 16 94 L 09/03/17 06:22 92 16 94 L 09/03/17 06:19 92 16 94 L 09/03/17 01:14 94 L Weight Admit Weight 130 lb Weight 130 lb I&O: 09/02/17 09/03/17 09/04/17 06:59 06:59 06:59 Intake Total 720 240 Balance 720 240 Result Diagrams: 09/01/17 04:12 09/01/17 04:12 Phys Exam - Physical Examination HEENT: PERRLA, sclera anicteric Neck: no JVD, supple Respiratory: no rales, wheezing present Cardiovascular: RRR, no significant murmur Gastrointestinal: soft, non-tender, positive bowel sounds Musculoskeletal: no edema, pulses present Neurological: non-focal, moves all 4 limbs Psychiatric: A&O x 3 Dx/Plan (1) Acute and chronic respiratory failure with hypoxia Code(s): J96.21 - ACUTE AND CHRONIC RESPIRATORY FAILURE WITH HYPOXIA Status: Resolved (2) COPD exacerbation Code(s): J44.1 - CHRONIC OBSTRUCTIVE PULMONARY DISEASE W (ACUTE) EXACERBATION Status: Acute (3) Hyponatremia Code(s): E87.1 - HYPO-OSMOLALITY AND HYPONATREMIA Status: Acute Comment: resolving (4) Anemia, normocytic normochromic Code(s): D64.9 - ANEMIA, UNSPECIFIED Status: Chronic (5) Anxiety and depression Code(s): F41.8 - OTHER SPECIFIED ANXIETY DISORDERS Status: Chronic (6) Diastolic dysfunction Code(s): I51.9 - HEART DISEASE, UNSPECIFIED Status: Chronic (7) GERD (gastroesophageal reflux disease) Code(s): K21.9 - GASTRO-ESOPHAGEAL REFLUX DISEASE WITHOUT ESOPHAGITIS Status: Chronic Qualifiers: Esophagitis presence: esophagitis presence not specified Qualified Code(s) : K21.9 - Gastro-esophageal reflux disease without esophagitis (8) HTN (hypertension) Code(s): I10 - ESSENTIAL (PRIMARY) HYPERTENSION Status: Chronic Qualifiers: Hypertension type: essential hypertension Qualified Code(s): I10 - Essential (primary) hypertension (9) Protein-calorie malnutrition, moderate Code(s): E44.0 - MODERATE PROTEIN-CALORIE MALNUTRITION Status: Chronic - Plan pt is too dry clinically, will give iv fluids gently so she can expectorate -: -easily, on iv steroids, oral levaquin, nebs -: agree with rehab eval -: d/w daughter at bedside -: dc lasix for now, will watch sodium levels * . Review of Systems - Medications/Allergies Allergies/Adverse Reactions: Allergies Allergy/AdvReac Type Severity Reaction Status Date / Time clarithromycin [From Biaxin] Allergy Diarrhea Verified 01/25/17 17:39 Penicillins Allergy UNKNOWN Verified 01/25/17 17:39 Sulfa (Sulfonamide Allergy DIZZINESS Verified 01/25/17 17:39 Antibiotics) Medications: Current Medications Acetaminophen (Tylenol) 650 mg PO Q4H PRN PRN Reason: Headache/Fever or Pain Last Admin: 09/03/17 00:10 Dose: 650 mg Hydrocodone Bitart/Acetaminophen ([place] 5/325) 1 tab PO Q6H PRN PRN Reason: Pain Albuterol/Ipratropium (Duoneb) 3 ml NEB [id number] [facility] Last Admin: 09/03/17 10:01 Dose: 3 ml Arformoterol Tartrate (Brovana) 15 mcg NEB BID-RT NANY Last Admin: 09/03/17 06:34 Dose: 15 mcg Bisacodyl (Dulcolax) 10 mg PO DAILYPRN PRN PRN Reason: Constipation Budesonide (Pulmicort Neb Solution) 0.5 mg INH BID-RT [facility] Last Admin: 09/03/17 06:19 Dose: 0.5 mg Diltiazem HCl (Cardizem Cd) 240 mg PO 2000 [facility] Last Admin: 09/02/17 21:12 Dose: 240 mg Enoxaparin Sodium (Lovenox) 40 mg SC 0900 [facility] Last Admin: 09/03/17 09:45 Dose: 40 mg Guaifenesin/Dextromethorphan (Robitussin Dm) 10 ml PO Q6H PRN PRN Reason: Cough Last Admin: 09/03/17 05:44 Dose: 10 ml Sodium Chloride (Normal Saline 0.9%) 1,000 mls @ 50 mls/hr IV .Q20H [facility] Levofloxacin (Levaquin) 500 mg PO 0600 [facility] Methylprednisolone Sodium Succinate (Solu-Medrol) 20 mg IVP Q6H [facility] Last Admin: 09/03/17 10:47 Dose: 20 mg Mometasone Furoate/Formoterol Fumar (Dulera 200 Mcg/5 Mcg Inhaler) 2 puff INH BID-RT [facility] Last Admin: 09/03/17 06:22 Dose: 2 puff Nicotine (Nicoderm Patch) 21 mg TD DAILY [facility] Last Admin: 09/03/17 09:46 Dose: 21 mg Nystatin (Mycostatin) 500,000 units SSW QID [facility] Last Admin: 09/03/17 09:45 Dose: 500,000 units Ondansetron HCl (Zofran) 4 mg IVP Q6H PRN PRN Reason: Nausea/Vomiting Ondansetron HCl (Zofran Odt) 4 mg PO Q4H PRN PRN Reason: Nausea/Vomiting Pantoprazole Sodium (Protonix) 40 mg PO DAILY [facility] Last Admin: 09/03/17 09:43 Dose: 40 mg Paroxetine HCl (Paxil) 20 mg PO DAILY [facility] Last Admin: 09/03/17 09:45 Dose: 20 mg Paroxetine HCl (Paxil) 20 mg PO HS [facility] Last Admin: 09/02/17 21:13 Dose: 20 mg Senna (Senokot) 2 tab PO HSPRN PRN PRN Reason: Constipation Sodium Chloride (Flush - Normal Saline) 10 ml IVF Q12HR [facility] Last Admin: 09/03/17 09:46 Dose: 10 ml Sodium Chloride (Flush - Normal Saline) 10 ml IVF PRN PRN PRN Reason: Saline Flush
[2017-09-03] MEDS ORDERED: Sodium Chloride 0.9% 1,000 ML IV SCH (12:45)
[2017-09-04 05:26] LABS: #Basophils 0.1 thou/uL (0.0-0.2); #Lymphocytes 0.3 thou/uL (1.20-3.40); #Monocytes 0.6 thou/uL (0.11-0.59); #Neutrophils 8.1 thou/uL (1.40-6.50); %Basophils 0.6 % (0.0-1.0); %Eosinophils 0.1 % (0.0-10.0); %Lymphocytes 2.7 % (21.0-51.0); %Monocytes 6.2 % (0.0-10.0); Hematocrit 32.8 % (36.0-47.0); Mean Platelet Volume 5.5 fL (7.4-10.4); Red Blood Cell (RBC) Count 3.49 mill/uL (4.20-5.40)
[2017-09-04 06:07] LABS: Anion Gap 10 mmol/L (10-20); BUN (Urea Nitrogen) 26 mg/dL (9.8-20.1); Calc. Creatinine Clearance 50 mL/min (70-130); Calcium 7.9 mg/dL (7.8-10.44); Carbon Dioxide 34 mmol/L (23-31); Chloride 92 mmol/L (98-107); Estimated GFR-MDRD 65
[2017-09-04] MEDS: Budesonide 0.5 MG/2 ML NEB INH SCH ×2 (06:15→19:36)
[2017-09-04] MEDS: Arformoterol 15 MCG/2 ML NEB NEB SCH ×2 (06:36→19:36)
[2017-09-04] MEDS: Mometasone/Formoterol 120 PUFF INHALER INH SCH ×2 (06:36→19:36)
[2017-09-04] MEDS: Enoxaparin Sodium 40 MG/0.4 ML SYRINGE SC SCH (09:04)
[2017-09-04] MEDS: Nystatin 500,000 UNITS/5 ML UDCUP SSW SCH ×4 (09:04→20:47)
[2017-09-04] MEDS: PARoxetine 20 MG TAB PO SCH ×2 (09:05→20:50)
[2017-09-04] MEDS: Nicotine 21 MG PATCH TD SCH (09:05)
--- NOTE | 2017-09-04 09:19 | PRG ---
DATE OF SERVICE: 09/04/2017 Ms. Salas is still wheezing, having difficulty coughing stuff up. PHYSICAL EXAMINATION: VITAL SIGNS: Temperature 98.2, pulse 88, respirations 18, O2 sat 91% on 2 liters, blood pressure 13 2/55. HEENT: Unremarkable. NECK: No JVD. LUNGS: Coarse rhonchi. CARDIAC: S1 and S2 regular. ABDOMEN: Soft. EXTREMITIES: No edema. LABORATORY DATA: White blood cell count 9, hematocrit 32.8, platelet count 498. Sodium 132, potassi um 3.8, chloride 92, CO2 34, BUN 26, creatinine 0.8, glucose 125. ASSESSMENT: Chronic obstructive pulmonary disease with severe exacerbation. PLAN: Because of difficulty clearing secretion, I will go ahead and change her nebs to EzPAP. Hopef ully that will allow her to clear secretions better.
--- NOTE | 2017-09-04 14:48 | PDOC.PN ---
- Subjective Encounter Start Date: 09/04/17 Encounter Start Time: 12:00 Subjective: still has sob/wheezing -: says she is better this morning than yesterday -: has diff bringing up sputum - Objective MAR Reviewed: Yes Vital Signs & Weight: Vital Signs (12 hours) Temp Pulse Resp BP Pulse Ox Pulse Ox Pulse Ox 09/04/17 10:15 89 16 95 09/04/17 10:10 93 L 95 09/04/17 08:00 98.2 F 88 16 93 L 09/04/17 07:25 98.2 F 88 132/55 L 91 L 09/04/17 06:13 83 18 96 09/04/17 04:15 95 Weight Admit Weight 130 lb Weight 130 lb I&O: 09/03/17 09/04/17 09/05/17 06:59 06:59 06:59 Intake Total 1640 440 Balance 1640 440 Result Diagrams: 09/04/17 05:17 09/04/17 05:17 Phys Exam - Physical Examination HEENT: PERRLA, sclera anicteric Neck: no JVD, supple Respiratory: no rales, wheezing present Cardiovascular: RRR, no significant murmur Gastrointestinal: soft, non-tender, positive bowel sounds Musculoskeletal: no edema, pulses present Neurological: non-focal, moves all 4 limbs Psychiatric: A&O x 3 Dx/Plan (1) Acute and chronic respiratory failure with hypoxia Code(s): J96.21 - ACUTE AND CHRONIC RESPIRATORY FAILURE WITH HYPOXIA Status: Resolved (2) COPD exacerbation Code(s): J44.1 - CHRONIC OBSTRUCTIVE PULMONARY DISEASE W (ACUTE) EXACERBATION Status: Acute (3) Hyponatremia Code(s): E87.1 - HYPO-OSMOLALITY AND HYPONATREMIA Status: Chronic (4) Anemia, normocytic normochromic Code(s): D64.9 - ANEMIA, UNSPECIFIED Status: Chronic (5) Anxiety and depression Code(s): F41.8 - OTHER SPECIFIED ANXIETY DISORDERS Status: Chronic (6) Diastolic dysfunction Code(s): I51.9 - HEART DISEASE, UNSPECIFIED Status: Chronic (7) GERD (gastroesophageal reflux disease) Code(s): K21.9 - GASTRO-ESOPHAGEAL REFLUX DISEASE WITHOUT ESOPHAGITIS Status: Chronic Qualifiers: Esophagitis presence: esophagitis presence not specified Qualified Code(s) : K21.9 - Gastro-esophageal reflux disease without esophagitis (8) HTN (hypertension) Code(s): I10 - ESSENTIAL (PRIMARY) HYPERTENSION Status: Chronic Qualifiers: Hypertension type: essential hypertension Qualified Code(s): I10 - Essential (primary) hypertension (9) Protein-calorie malnutrition, moderate Code(s): E44.0 - MODERATE PROTEIN-CALORIE MALNUTRITION Status: Chronic - Plan recieved a liter of NS last 24hrs -: will be on EZpap nebs -: likely will need 2 more days to ease up her flare up -: to amb as tolerated -: d/w daughters at bedside * . Review of Systems - Medications/Allergies Allergies/Adverse Reactions: Allergies Allergy/AdvReac Type Severity Reaction Status Date / Time clarithromycin [From Biaxin] Allergy Diarrhea Verified 01/25/17 17:39 Penicillins Allergy UNKNOWN Verified 01/25/17 17:39 Sulfa (Sulfonamide Allergy DIZZINESS Verified 01/25/17 17:39 Antibiotics) Medications: Current Medications Acetaminophen (Tylenol) 650 mg PO Q4H PRN PRN Reason: Headache/Fever or Pain Last Admin: 09/03/17 00:10 Dose: 650 mg Hydrocodone Bitart/Acetaminophen ([place] 5/325) 1 tab PO Q6H PRN PRN Reason: Pain Albuterol/Ipratropium (Duoneb) 3 ml EZPAP [id number] [facility] Last Admin: 09/04/17 14:10 Dose: 3 ml Arformoterol Tartrate (Brovana) 15 mcg NEB BID-RT [facility] Last Admin: 09/04/17 06:36 Dose: 15 mcg Bisacodyl (Dulcolax) 10 mg PO DAILYPRN PRN PRN Reason: Constipation Last Admin: 09/03/17 18:37 Dose: 10 mg Budesonide (Pulmicort Neb Solution) 0.5 mg INH BID-RT [facility] Last Admin: 09/04/17 06:15 Dose: 0.5 mg Diltiazem HCl (Cardizem Cd) 240 mg PO 2000 [facility] Last Admin: 09/03/17 20:44 Dose: 240 mg Enoxaparin Sodium (Lovenox) 40 mg SC 0900 [facility] Last Admin: 09/04/17 09:04 Dose: 40 mg Guaifenesin/Dextromethorphan (Robitussin Dm) 10 ml PO Q6H PRN PRN Reason: Cough Last Admin: 09/03/17 05:44 Dose: 10 ml Levofloxacin (Levaquin) 500 mg PO 0600 [facility] Last Admin: 09/04/17 05:28 Dose: 500 mg Methylprednisolone Sodium Succinate (Solu-Medrol) 20 mg IVP Q6H [facility] Last Admin: 09/04/17 11:26 Dose: 20 mg Mometasone Furoate/Formoterol Fumar (Dulera 200 Mcg/5 Mcg Inhaler) 2 puff INH BID-RT [facility] Last Admin: 09/04/17 06:36 Dose: 2 puff Nicotine (Nicoderm Patch) 21 mg TD DAILY [facility] Last Admin: 09/04/17 09:05 Dose: 21 mg Nystatin (Mycostatin) 500,000 units SSW QID [facility] Last Admin: 09/04/17 13:43 Dose: 500,000 units Ondansetron HCl (Zofran) 4 mg IVP Q6H PRN PRN Reason: Nausea/Vomiting Ondansetron HCl (Zofran Odt) 4 mg PO Q4H PRN PRN Reason: Nausea/Vomiting Pantoprazole Sodium (Protonix) 40 mg PO DAILY [facility] Last Admin: 09/04/17 09:05 Dose: 40 mg Paroxetine HCl (Paxil) 20 mg PO DAILY [facility] Last Admin: 09/04/17 09:05 Dose: 20 mg Paroxetine HCl (Paxil) 20 mg PO HS [facility] Last Admin: 09/03/17 20:45 Dose: 20 mg Senna (Senokot) 2 tab PO HSPRN PRN PRN Reason: Constipation Sodium Chloride (Flush - Normal Saline) 10 ml IVF Q12HR [facility] Last Admin: 09/04/17 09:05 Dose: Not Given Sodium Chloride (Flush - Normal Saline) 10 ml IVF PRN PRN PRN Reason: Saline Flush
[2017-09-04] MEDS ORDERED: diphenhydrAMINE 2% CREAM 28.4 GM TUBE TOP PRN (18:52)
[2017-09-05] MEDS: Budesonide 0.5 MG/2 ML NEB INH SCH ×2 (06:02→18:58)
[2017-09-05] MEDS: Mometasone/Formoterol 120 PUFF INHALER INH SCH ×2 (06:05→19:17)
[2017-09-05] MEDS: Arformoterol 15 MCG/2 ML NEB NEB SCH ×2 (06:10→19:18)
[2017-09-05] MEDS: Nicotine 21 MG PATCH TD SCH (07:46)
[2017-09-05] MEDS: Enoxaparin Sodium 40 MG/0.4 ML SYRINGE SC SCH (07:47)
[2017-09-05] MEDS: PARoxetine 20 MG TAB PO SCH ×2 (07:49→20:06)
[2017-09-05] MEDS: Nystatin 500,000 UNITS/5 ML UDCUP SSW SCH ×4 (07:49→20:08)
--- NOTE | 2017-09-05 13:05 | PDOC.PN ---
- Subjective Encounter Start Date: 09/05/17 Encounter Start Time: 09:30 Subjective: breathing better, no chest pain -: is able to bring some sputum up now - Objective MAR Reviewed: Yes Vital Signs & Weight: Vital Signs (12 hours) Temp Pulse Resp BP Pulse Ox 09/05/17 09:30 83 18 95 09/05/17 08:00 97.9 F 76 22 H 09/05/17 07:33 97.9 F 76 22 H 161/70 H 90 L 09/05/17 06:10 85 16 95 09/05/17 06:05 85 16 95 09/05/17 06:02 85 16 95 09/05/17 01:32 81 16 90 L Weight Admit Weight 130 lb Weight 130 lb I&O: 09/04/17 09/05/17 09/06/17 06:59 06:59 06:59 Intake Total 1640 990 Balance 1640 990 Result Diagrams: 09/04/17 05:17 09/04/17 05:17 Phys Exam - Physical Examination HEENT: PERRLA, sclera anicteric Neck: no JVD, supple Respiratory: no rales, wheezing present Cardiovascular: RRR, no significant murmur Gastrointestinal: soft, non-tender, positive bowel sounds Musculoskeletal: no edema, pulses present Neurological: non-focal, moves all 4 limbs Psychiatric: A&O x 3 Dx/Plan (1) Acute and chronic respiratory failure with hypoxia Code(s): J96.21 - ACUTE AND CHRONIC RESPIRATORY FAILURE WITH HYPOXIA Status: Resolved (2) COPD exacerbation Code(s): J44.1 - CHRONIC OBSTRUCTIVE PULMONARY DISEASE W (ACUTE) EXACERBATION Status: Acute (3) Hyponatremia Code(s): E87.1 - HYPO-OSMOLALITY AND HYPONATREMIA Status: Chronic (4) Anemia, normocytic normochromic Code(s): D64.9 - ANEMIA, UNSPECIFIED Status: Chronic (5) Anxiety and depression Code(s): F41.8 - OTHER SPECIFIED ANXIETY DISORDERS Status: Chronic (6) Diastolic dysfunction Code(s): I51.9 - HEART DISEASE, UNSPECIFIED Status: Chronic (7) GERD (gastroesophageal reflux disease) Code(s): K21.9 - GASTRO-ESOPHAGEAL REFLUX DISEASE WITHOUT ESOPHAGITIS Status: Chronic Qualifiers: Esophagitis presence: esophagitis presence not specified Qualified Code(s) : K21.9 - Gastro-esophageal reflux disease without esophagitis (8) HTN (hypertension) Code(s): I10 - ESSENTIAL (PRIMARY) HYPERTENSION Status: Chronic Qualifiers: Hypertension type: essential hypertension Qualified Code(s): I10 - Essential (primary) hypertension (9) Protein-calorie malnutrition, moderate Code(s): E44.0 - MODERATE PROTEIN-CALORIE MALNUTRITION Status: Chronic - Plan is on steroids, duonebs and humidified oxygen -: oral levaquin -: to amb as tolerated -: copd flare up is slowly resolving * . Review of Systems - Medications/Allergies Allergies/Adverse Reactions: Allergies Allergy/AdvReac Type Severity Reaction Status Date / Time clarithromycin [From Biaxin] Allergy Diarrhea Verified 01/25/17 17:39 Penicillins Allergy UNKNOWN Verified 01/25/17 17:39 Sulfa (Sulfonamide Allergy DIZZINESS Verified 01/25/17 17:39 Antibiotics) Medications: Current Medications Acetaminophen (Tylenol) 650 mg PO Q4H PRN PRN Reason: Headache/Fever or Pain Last Admin: 09/03/17 00:10 Dose: 650 mg Hydrocodone Bitart/Acetaminophen ([place] 5/325) 1 tab PO Q6H PRN PRN Reason: Pain Albuterol/Ipratropium (Duoneb) 3 ml EZPAP [id number] [facility] Last Admin: 09/05/17 09:30 Dose: 3 ml Arformoterol Tartrate (Brovana) 15 mcg NEB BID-RT [facility] Last Admin: 09/05/17 06:10 Dose: 15 mcg Bisacodyl (Dulcolax) 10 mg PO DAILYPRN PRN PRN Reason: Constipation Last Admin: 09/03/17 18:37 Dose: 10 mg Budesonide (Pulmicort Neb Solution) 0.5 mg INH BID-RT [facility] Last Admin: 09/05/17 06:02 Dose: 0.5 mg Diltiazem HCl (Cardizem Cd) 240 mg PO 2000 [facility] Last Admin: 09/04/17 20:46 Dose: 240 mg Enoxaparin Sodium (Lovenox) 40 mg SC 09 [facility] Last Admin: 09/05/17 07:47 Dose: 40 mg Guaifenesin/Dextromethorphan (Robitussin Dm) 10 ml PO Q6H PRN PRN Reason: Cough Last Admin: 09/03/17 05:44 Dose: 10 ml Levofloxacin (Levaquin) 500 mg PO 0600 [facility] Last Admin: 09/05/17 04:46 Dose: 500 mg Methylprednisolone Sodium Succinate (Solu-Medrol) 20 mg IVP Q6H [facility] Last Admin: 09/05/17 09:49 Dose: 20 mg Mometasone Furoate/Formoterol Fumar (Dulera 200 Mcg/5 Mcg Inhaler) 2 puff INH BID-RT [facility] Last Admin: 09/05/17 06:05 Dose: 2 puff Nicotine (Nicoderm Patch) 21 mg TD DAILY [facility] Last Admin: 09/05/17 07:46 Dose: 21 mg Nystatin (Mycostatin) 500,000 units SSW QID [facility] Last Admin: 09/05/17 11:54 Dose: 500,000 units Ondansetron HCl (Zofran) 4 mg IVP Q6H PRN PRN Reason: Nausea/Vomiting Ondansetron HCl (Zofran Odt) 4 mg PO Q4H PRN PRN Reason: Nausea/Vomiting Pantoprazole Sodium (Protonix) 40 mg PO DAILY [facility] Last Admin: 09/05/17 07:47 Dose: 40 mg Paroxetine HCl (Paxil) 20 mg PO DAILY [facility] Last Admin: 09/05/17 07:49 Dose: Not Given Paroxetine HCl (Paxil) 20 mg PO HS [facility] Last Admin: 09/04/17 20:50 Dose: 20 mg Senna (Senokot) 2 tab PO HSPRN PRN PRN Reason: Constipation Sodium Chloride (Flush - Normal Saline) 10 ml IVF Q12HR [facility] Last Admin: 09/05/17 07:49 Dose: 10 ml Sodium Chloride (Flush - Normal Saline) 10 ml IVF PRN PRN PRN Reason: Saline Flush Zinc Acetate/Diphenhydramine (Benadryl 2% Cream) 0 gm TOP ONE PRN PRN Reason: . Stop: 09/05/17 18:53 Last Admin: 09/04/17 20:46 Dose: 1 applic
--- NOTE | 2017-09-05 20:51 | PRG ---
DATE OF SERVICE: 09/05/2017 SUBJECTIVE: Ms. Salas has no complaints today. She says she feels like she is close to being alejo dy to go home. Physical therapy reports she is doing well with ambulation. OBJECTIVE: VITAL SIGNS: She is afebrile, heart rate is in the 70s, respiratory rate in the teens, oximetry is 9 5 on 2 liters, blood pressure 161/70. She has oxygen at home and a nebulizer. LUNGS: Clear today. HEART: Regular rhythm. IMPRESSION: Chronic obstructive pulmonary disease exacerbation, improving. She may be able to be di scharged tomorrow. She says she is significantly improved compared to yesterday and the day before.
[2017-09-06] MEDS: Mometasone/Formoterol 120 PUFF INHALER INH SCH (07:04)
[2017-09-06] MEDS: Arformoterol 15 MCG/2 ML NEB NEB SCH (07:05)
[2017-09-06] MEDS: Budesonide 0.5 MG/2 ML NEB INH SCH (07:05)
[2017-09-06 08:06] VITALS: BP 134/92; TEMP 98.1
[2017-09-06] MEDS: Nicotine 21 MG PATCH TD SCH (08:35)
[2017-09-06] MEDS: Enoxaparin Sodium 40 MG/0.4 ML SYRINGE SC SCH (08:35)
[2017-09-06] MEDS: Nystatin 500,000 UNITS/5 ML UDCUP SSW SCH (08:36)
[2017-09-06] MEDS: PARoxetine 20 MG TAB PO SCH (08:36)
--- NOTE | 2017-09-06 13:40 | PDOC.PN ---
- Subjective Encounter Start Date: 09/06/17 Encounter Start Time: 07:35 Subjective: wants to go home, she feels she is at her baseline breathing now -: is amb in room on oxygen - Objective MAR Reviewed: Yes Vital Signs & Weight: Vital Signs (12 hours) Temp Pulse Resp BP Pulse Ox 09/06/17 10:36 94 16 09/06/17 08:00 98.1 F 74 17 134/92 H 96 09/06/17 07:05 101 H 16 09/06/17 02:33 101 H 16 Weight Admit Weight 130 lb Weight 130 lb I&O: 09/05/17 09/06/17 09/07/17 06:59 06:59 06:59 Intake Total 990 1460 Balance 990 1460 Result Diagrams: 09/04/17 05:17 09/04/17 05:17 Phys Exam - Physical Examination HEENT: PERRLA, moist MMs Neck: no JVD, supple Respiratory: no wheezing, no rales rhonchi+ Cardiovascular: RRR, no significant murmur Gastrointestinal: soft, non-tender, no distention, positive bowel sounds Musculoskeletal: no edema, pulses present Neurological: non-focal, moves all 4 limbs Psychiatric: A&O x 3 Dx/Plan (1) Acute and chronic respiratory failure with hypoxia Code(s): J96.21 - ACUTE AND CHRONIC RESPIRATORY FAILURE WITH HYPOXIA Status: Resolved (2) COPD exacerbation Code(s): J44.1 - CHRONIC OBSTRUCTIVE PULMONARY DISEASE W (ACUTE) EXACERBATION Status: Acute (3) Hyponatremia Code(s): E87.1 - HYPO-OSMOLALITY AND HYPONATREMIA Status: Chronic (4) Anemia, normocytic normochromic Code(s): D64.9 - ANEMIA, UNSPECIFIED Status: Chronic (5) Anxiety and depression Code(s): F41.8 - OTHER SPECIFIED ANXIETY DISORDERS Status: Chronic (6) Diastolic dysfunction Code(s): I51.9 - HEART DISEASE, UNSPECIFIED Status: Chronic (7) GERD (gastroesophageal reflux disease) Code(s): K21.9 - GASTRO-ESOPHAGEAL REFLUX DISEASE WITHOUT ESOPHAGITIS Status: Chronic Qualifiers: Esophagitis presence: esophagitis presence not specified Qualified Code(s) : K21.9 - Gastro-esophageal reflux disease without esophagitis (8) HTN (hypertension) Code(s): I10 - ESSENTIAL (PRIMARY) HYPERTENSION Status: Chronic Qualifiers: Hypertension type: essential hypertension Qualified Code(s): I10 - Essential (primary) hypertension (9) Protein-calorie malnutrition, moderate Code(s): E44.0 - MODERATE PROTEIN-CALORIE MALNUTRITION Status: Chronic - Plan pt is insisting on going home -: will dc home on prednisone taper over 20 days -: she has to see in 1-2 weeks -: daughter at bedside, has portable oxygen to go home -: no antibiotics on discharge * .
--- NOTE | 2017-09-06 15:06 | PRG ---
DATE OF SERVICE: 09/06/2017 SUBJECTIVE: Coco Salas did well overnight. Her vital signs are stable. She feels she is read y to go home. OBJECTIVE: LUNGS: Remarkable for diffuse wheezes still, but she says she always wheezes a little bit. She is a mbulating around the room without significant dyspnea. CARDIOVASCULAR: Regular rhythm. ABDOMEN: Soft. IMPRESSION: Chronic obstructive pulmonary disease exacerbation. PLAN: Discharge home on prednisone and antibiotics, to follow up with Dr. Parkinson within a week to 10 d ays. I have emphasized the importance of physical therapy and exercise on her own outside of the [facility] sical therapist, Val[place].
--- NOTE | 2017-09-06 17:09 | DIS ---
DATE OF ADMISSION: 08/29/2017 DATE OF DISCHARGE: 09/06/2017 DISCHARGE DISPOSITION: To home. PRIMARY DISCHARGE DIAGNOSES: 1. Acute on chronic respiratory failure with hypoxemia and hypercarbia, resolved. 2. Acute on chronic obstructive pulmonary disease exacerbation, resolving. 3. Chronic hyponatremia. SECONDARY DISCHARGE DIAGNOSES: Chronic anemia, anxiety, depression, diastolic dysfunction, gastroesophageal reflux disease, and hypertension. PROCEDURES DONE DURING HOSPITALIZATION: Echo with 2D Doppler done showed an EF of 50%-55%. There was diastolic dysfunction. Chest x-ray done on the day of admission showed chronic COPD changes with no acute infiltrate as such. Blood cultures x2 no growth. Hemoglobin and hematocrit 10 and 32, platelet count is 498. Discharge BUN and creatinine is 26 and 0.8. Troponin was indeterminate with peaking up to 0.05, CK-MB 5.1, BNP 263. INPATIENT CONSULTS: Dr. Tejeda/Francisca for pulmonology. DISCHARGE MEDICATIONS: Symbicort inhaler 2 puffs twice daily, Cardizem CD 240 mg p.o. daily, Lasix 20 mg p.o. daily, [place] p.r.n. for pain, DuoNebs q.6 hourly , Prevacid 30 mg p.o. daily, Paxil 20 mg p.o. at bedtime., prednisone taper starting at 40 mg oral course of 20 days. ALLERGIES: CLARITHROMYCIN, PENICILLIN, and SULFA. DISCHARGE PLAN: Patient to follow up with Dr. Parkinson in 1-2 weeks and primary care physician in 1 week. BRIEF COURSE DURING HOSPITALIZATION: Patient initially was brought to emergency room for complaints of shortness of breath for almost a week. She has known history of COPD and is on home oxygen. She was admitted for acute on chronic COPD exacerbation. The patient was placed on IV antibiotics along with IV steroids and DuoNebs. She has had indeterminate troponins, likely due to demand ischemia from COPD flareup. Initially, she was on telemetry and later transferred to medical floor. She has had slow and steady recovery. This morning, patient has been wanting to go home. She is still wheezing a little bit, but it is mostly on exertion. She wants to continue tapering steroids and follow exercise regimen at home. Complete updates were given to patient and her daughter at bedside. She will follow up with Dr. Parkinson in 2 weeks. Please see a face to face documentation on [facility] for the day of discharge. [facility]
== END 2017-09-06 11:40 | disposition home health service (06) | DRG 189 ==
LOC: ERS 15:49 → 2NO 18:31 → T4-A 08-31 16:50
PROVIDERS: ADMIT Internal Medicine; ATTEND Internal Medicine
DX: J96.21 Acute and chronic respiratory failure with hypoxia (principal); E44.0 Moderate protein-calorie malnutrition; I24.8 Other forms of acute ischemic heart disease; E87.1 Hypo-osmolality and hyponatremia; J44.1 Chronic obstructive pulmonary disease with (acute) exacerbation; Z68.1 Body mass index [BMI] 19.9 or less, adult; J96.22 Acute and chronic respiratory failure with hypercapnia; D64.9 Anemia, unspecified; I10 Essential (primary) hypertension; Z90.710 Acquired absence of both cervix and uterus; K21.9 Gastro-esophageal reflux disease without esophagitis; Z88.1 Allergy status to other antibiotic agents; Z88.0 Allergy status to penicillin; Z88.2 Allergy status to sulfonamides; F41.8 Other specified anxiety disorders; F17.210 Nicotine dependence, cigarettes, uncomplicated; Z85.41 Personal history of malignant neoplasm of cervix uteri; E89.0 Postprocedural hypothyroidism; Z85.118 Personal history of other malignant neoplasm of bronchus and lung
CPT/HCPCS: 36415; 71020; 80048; 80053; 82550; 82553; 83605; 83880; 84484; 85025; 87040; 93005; 93306; 94640; 94760; 96374; 99406; A4216; G8978-GP-CI; G8979-GP-CH; G8987-GO-CI; G8988-GO-CI; G8989-GO-CI; G8996-GN-CI; G8997-GN-CI; J1650; J1956; J2920; J2930; J7611; J7620; J7626

== ENCOUNTER 2017-10-16 09:36 | Observation (INO) | payer MEDICARE, BC ==
[2017-10-16 10:06] LABS: #Lymphocytes 0.6 thou/uL (1.20-3.40); #Monocytes 0.5 thou/uL (0.11-0.59); #Neutrophils 7.4 thou/uL (1.40-6.50); %Basophils 0.2 % (0.0-1.0); %Eosinophils 0.2 % (0.0-10.0); %Lymphocytes 6.5 % (21.0-51.0); %Monocytes 6.2 % (0.0-10.0); Mean Corpuscular HGB CONC 32.4 g/dL (32.0-36.0); Mean Corpuscular Hemoglobin 30.5 pg (27.0-31.0); Mean Platelet Volume 5.4 fL (7.4-10.4); Platelet Count 435 thou/uL (130-400); RBC Distribution Width 13.4 % (11.5-14.5); Red Blood Cell (RBC) Count 3.28 mill/uL (4.20-5.40); White Blood Cell (WBC) Count 8.5 thou/uL (4.8-10.8)
[2017-10-16 10:20] LABS: ALT (SGPT) 9 U/L (8-55); AST (SGOT) 19 U/L (5-34); Albumin 3.9 g/dL (3.4-4.8); Alkaline Phosphatase 62 U/L (40-150); Anion Gap 14 mmol/L (10-20); BUN (Urea Nitrogen) 12 mg/dL (9.8-20.1); Bilirubin, Total 0.3 mg/dL (0.2-1.2); Calc. Creatinine Clearance 0 mL/min (70-130); Carbon Dioxide 28 mmol/L (23-31); Chloride 97 mmol/L (98-107); Estimated GFR-MDRD 56; Globulin 2.6 g/dL (2.4-3.5); Glucose 114 mg/dL (83-110); Potassium 4.2 mmol/L (3.5-5.1); Protein, Total 6.5 g/dL (6.0-8.3); Sodium 135 mmol/L (136-145)
[2017-10-16 10:24] LABS: CKMB 1.4 ng/mL (0-6.6)
[2017-10-16] MEDS ORDERED: methylPREDNISolone Sod Succ/PF 125 MG/2 ML VIAL ONE (10:27)
--- NOTE | 2017-10-16 10:55 | RAD ---
PORTABLE UPRIGHT FRONTAL CHEST RADIOGRAPH: DATE: 10/16/17. COMPARISON: , 09/26/13. HISTORY: Dyspnea and shortness of breath. FINDINGS: There is extensive linear interstitial density seen throughout both lungs with pulmonary hyperinflati on, stable. Findings suggest underlying emphysematous change. Incompletely imaged cervical spine borjas rdware is present. Blunting of bilateral costophrenic angles suggests small bilateral pleural effusi ons, left greater than right, stable. There is partial opacification of the left lower lobe, stable as well. IMPRESSION: Stable interstitial prominence and pulmonary hyperinflation with increased density in the left base a nd small bilateral pleural effusions and/or pleural scar. Findings are unchanged since 09/26/13. POS: CHRIS
[2017-10-16 11:44] LABS: Bilirubin Negative (Negative); Blood, Urine Negative (Negative); Clarity CLEAR (Clear); Glucose, Urine (Dipstick) Negative (Negative); Leukocyte Negative (Negative); Nitrite Negative (Negative); Protein, Urine (Dipstick) Trace mg/dL (Neg-Trace); Specific Gravity, Urine 1.014 (1.002-1.036); Urobilinogen 0.2 mg/dL (0.2-1.0)
[2017-10-16 13:09] VITALS: BMI 19.8
--- NOTE | 2017-10-16 13:51 | HP ---
HISTORY OF PRESENT ILLNESS: Ms. Salas is an 82-year-old woman. She has a history of ch ronic COPD and she uses oxygen at home; however, this morning, she experiencing some increasing short ness of breath. She was brought to the ER, she was evaluated, was felt to have COPD exacerbation. S he is being admitted for management. She did have some fever, she also describes some dry cough, which is not unusual. PAST MEDICAL HISTORY: Remarkable for COPD and also she was diagnosed with hypertension and also lung cancer. Her lung cancer was treated with left upper lung lobectomy. PAST SURGICAL HISTORY: Include hysterectomy, thyroidectomy, C-spine, laminectomy, tonsillectomy, sharri endectomy. ALLERGIES: She has allergy to PENICILLIN, SULFA, and BIAXIN. SOCIAL HISTORY: She is an active smoker. She smoked half a pack of cigarettes a day and currently, she has decreased it, she mentioned. She drinks socially. No history of substance abuse. FAMILY HISTORY: Reviewed and is not contributory. MEDICATIONS: Prior to admission, she was on Lasix, prednisone, Paxil, diltiazem. REVIEW OF SYSTEMS: Constitutional: She did have some fever this morning. Denies any weakness. AMANDA NT: No headache, no ocular pain, no sore throat, no rhinorrhea, no earache, no epistaxis. Neck: No neck pain, no neck stiffness. Cardiovascular: Admits to shortness of breath, no chest pain. Pulmo nary: Dry cough. Gastrointestinal: No nausea, no vomiting, no diarrhea, no abdominal pain. Genito urinary: No dysuria, no hematuria. Endocrinology: Ne heat or cold tolerance. No polyuria, polydip oralia, polyphagia. Hematology: No abnormal bleeding, no ecchymosis. Lymphatic: No palpable lymphade nopathy, no painful lymphadenopathy. Skin: No rash, no itching. Musculoskeletal: Admits to arthri tis. Allergies: No hayfever. Neurological: No seizure. Psychiatric: Admits to anxiety, depressi on. PHYSICAL EXAMINATION: GENERAL: At the current time, she is alert, oriented, receiving oxygen via nasal cannula. VITAL SIGN S: Her latest vital signs show a temperature 98.9, pulse rate 108, respiratory rate of 18, blood pre ssure 94/60. HEENT: Her head is normocephalic and atraumatic. Both her pupils are equal, reactive. Ears and nos e normal. Oral mucosa is moist. Pharyngeal area is clear with no exudate, no hyperemia. NECK: Supple. There is no distention of the jugular vein. No lymphadenopathy felt. Thyroid gland not palpable. There is no carotid bruit. CHEST: Symmetrical with regular S1, S2. LUNGS: Show some wheezing. ABDOMEN: Soft. Bowel sounds heard. I could not appreciate any organomegaly. There is no focal are a of tenderness. EXTREMITIES: Limbs show no edema. NEUROLOGIC: She moves all extremities. LABORATORY DATA: Her chemistry and electrolytes done today shows sodium of 135, potassium 4.2, chlor ever 97, CO2 of 28, BUN 12, creatinine 0.96, glucose 114, lactic acid 1.1, calcium 9, total bilirubin 0.3, AST 19, ALT 9. Troponin 0.030. BNP 130.3, total protein 6.5, albumin 3.9, globulin 3.6. CBC s howed WBC of 8.5, hemoglobin of 10, hematocrit of 30.8, MCV of 94, platelet of 435. Urinalysis shows specific gravity of 1.014, pH of 7, otherwise negative. X-RAY FINDINGS: Chest x-ray showed no acute change. ASSESSMENT AND PLAN: This is an 82-year-old woman with history of hypertension, chronic ob structive pulmonary disease, previous history of lung cancer treated with surgery, who was admitted w ith shortness of breath, found to have chronic obstructive pulmonary disease exacerbation. We will s tart her on IV steroids, bronchodilator, inhaler. Her serum troponin was noticed to be elevated, we will monitor troponin level. We will consider Cardiology evaluation. Patient will be admitted to [facility].
[2017-10-16 14:59] LABS: Troponin I 0.035 ng/mL (< 0.028)
--- NOTE | 2017-10-16 16:45 | CON ---
DATE OF CONSULTATION: 10/16/2017 REASON FOR CONSULTATION: Elevated troponin. REFERRING PROVIDER: Nighat Llamas MD HISTORY OF PRESENT ILLNESS: Ms. Salas is an 82-year-old woman. She has not been seen or evaluate d by Cardiology in the past. She recently presented with shortness of breath. She does have a histo ry of COPD. She has continued tobacco abuse. Her troponin was in the indeterminate range at 0.03. No chest pain or pressure noted. BNP was estimated at 130. PAST MEDICAL HISTORY: COPD, lung cancer, lobectomy, hypertension, thyroidectomy, C-spine surgery, la minectomy, tonsillectomy and appendectomy. ALLERGIES: PENICILLIN, SULFA, BIAXIN. SOCIAL HISTORY: Continues to smoke. She is not currently . REVIEW OF SYSTEMS: Ten point review of systems is reviewed and is as above, negative. PHYSICAL EXAMINATION: GENERAL: She does appear older than her stated age. She had mild respiratory distress. VITAL SIGNS: Blood pressure 160/60, pulse 90, temperature 97.9. NEUROLOGIC: The patient is alert and oriented times 3 with no focal neurologic deficits. HEENT: Sclerae without icterus. Mouth has moist mucous membranes with normal pallor. NECK: No JVD. Carotid upstroke brisk. No bruits bilaterally. LUNGS: Rales and rhonchi noted bilaterally. BACK: No scoliosis or kyphosis. CARDIAC: Regular rate and rhythm with normal S1 and S2. No S3 or S4 noted. No significant rubs, mu rmurs, thrills, or gallops noted throughout the precordium. PMI is not displaced. There is no santosh ternal heave. ABDOMEN: Soft, nontender, nondistended. No peritoneal signs present. No hepatosplenomegaly. No abnormal striae. EXTREMITIES: 2+ femoral and 2+ dorsalis pedis pulses. No cyanosis, clubbing, or edema. SKIN: No gross abnormalities. PERTINENT LABORATORY DATA AND IMAGING DATA: Sodium 135, creatinine 0.96, troponin as above. EKG: N ormal sinus rhythm, nonspecific ST-T wave changes. IMPRESSION: 1. Elevated troponin. 2. Chronic obstructive pulmonary disease exacerbation. 3. Tobacco abuse. RECOMMENDATIONS: At this point, I am not overly concerned about troponin 0.03. This is just above t he limit of normal. This is likely related to recent COPD exacerbation. She did have an echo perfor med in 08/24/2017 with LVEF 50%-55%. I did not feel that needs to be repeated. At this point, we wo uld treat her pulmonary status aggressively. I have no further recommendations. Please reconsult if needed.
[2017-10-16] MEDS: PARoxetine 20 MG TAB PO SCH (21:09)
[2017-10-16] MEDS ORDERED: Mometasone/Formoterol 120 PUFF INHALER INH SCH (21:30)
[2017-10-16] MEDS ORDERED: guaiFENesin ER 600 MG TAB PO SCH (23:30)
[2017-10-17] MEDS: Diabetic Tussin 200 MG/10 ML UDCUP PO PRN ×3 (03:46→17:29)
--- NOTE | 2017-10-17 03:50 | PDOC.EVN ---
Event Note - Event Note Event Note: RN called - Pt had SVT. Patient unsure whether she takes Cardizem at home. It is mentioned in home meds based on last discharge. Will start low dose Cardizem.
[2017-10-17] MEDS: Acetaminophen 325 MG TAB PO PRN (06:28)
[2017-10-17] MEDS: Mometasone/Formoterol 120 PUFF INHALER INH SCH ×2 (08:04→20:58)
[2017-10-17] MEDS: Nicotine 21 MG PATCH TD SCH (08:29)
[2017-10-17] MEDS: guaiFENesin ER 600 MG TAB PO SCH ×2 (08:29→21:25)
[2017-10-17] MEDS ORDERED: Non-Formulary Item 1 EACH (Budesonide-Formoterol [Symbicort 160-4.5] 2 PUFF) INH SCH (09:00)
--- NOTE | 2017-10-17 11:48 | PDOC.PN ---
- Subjective Encounter Start Date: 10/17/17 Encounter Start Time: 10:35 Feels better, on O2 via N/C - Objective Vital Signs & Weight: Vital Signs (12 hours) Temp Pulse Resp BP Pulse Ox 10/17/17 11:29 98.0 F 93 18 158/69 H 97 10/17/17 10:58 86 16 97 10/17/17 08:06 78 16 98 10/17/17 08:04 88 24 H 98 10/17/17 08:00 97.8 F 78 16 10/17/17 07:45 97.8 F 85 16 121/74 92 L 10/17/17 03:49 97.8 F 94 22 H 146/70 H 95 10/17/17 02:52 93 24 H 95 Weight Weight 130 lb 9.6 oz I&O: 10/16/17 10/17/17 10/18/17 06:59 06:59 06:59 Intake Total 800 Balance 800 Result Diagrams: 10/16/17 09:55 10/16/17 09:55 Radiology Reviewed by me: Yes Phys Exam - Physical Examination Constitutional: NAD HEENT: sclera anicteric Neck: no JVD Respiratory: wheezing present Cardiovascular: RRR Gastrointestinal: soft Musculoskeletal: no edema Neurological: moves all 4 limbs Psychiatric: A&O x 3 Dx/Plan (1) SVT (supraventricular tachycardia) Code(s): I47.1 - SUPRAVENTRICULAR TACHYCARDIA Status: Acute Comment: Resolved. One episode noticed last night. (2) COPD exacerbation Code(s): J44.1 - CHRONIC OBSTRUCTIVE PULMONARY DISEASE W (ACUTE) EXACERBATION Status: Acute Plan: Continue steroids, bronchodilators. (3) HTN (hypertension) Code(s): I10 - ESSENTIAL (PRIMARY) HYPERTENSION Status: Chronic Qualifiers: Plan: stable (4) Lung cancer Code(s): C34.90 - MALIGNANT NEOPLASM OF UNSP PART OF UNSP BRONCHUS OR LUNG Status: Chronic Comment: Treated with surgery many years ago. - Plan -: Continue current therapy. * .
[2017-10-17] MEDS ORDERED: Zolpidem Tartrate 5 MG TAB PO SCH (21:00)
[2017-10-17] MEDS: PARoxetine 20 MG TAB PO SCH (21:25)
[2017-10-17 22:13] VITALS: TEMP 97.8
[2017-10-18] MEDS: Diabetic Tussin 200 MG/10 ML UDCUP PO PRN ×2 (01:01→06:20)
[2017-10-18] MEDS: Mometasone/Formoterol 120 PUFF INHALER INH SCH (07:49)
[2017-10-18] MEDS: guaiFENesin ER 600 MG TAB PO SCH (08:12)
[2017-10-18] MEDS: Nicotine 21 MG PATCH TD SCH (08:13)
[2017-10-18] MEDS: Acetaminophen 325 MG TAB PO PRN (08:14)
--- NOTE | 2017-10-18 11:24 | PDOC.PN ---
- Subjective Encounter Start Date: 10/18/17 Encounter Start Time: 11:00 No complaint expressed. - Objective Vital Signs & Weight: Vital Signs (12 hours) Temp Pulse Resp BP BP Pulse Ox 10/18/17 11:06 84 16 97 10/18/17 08:00 97.8 F 73 16 10/18/17 07:50 73 16 95 10/18/17 07:49 75 16 95 10/18/17 07:32 97.8 F 78 18 170/74 H 92 L 10/18/17 04:33 96 10/18/17 04:25 82 18 95 10/18/17 04:00 97.8 F 83 20 173/76 H 97 10/18/17 01:08 80 18 94 L Weight Weight 138 lb 14.4 oz I&O: 10/17/17 10/18/17 10/19/17 06:59 06:59 06:59 Intake Total 800 2050 Balance 800 2050 Result Diagrams: 10/16/17 09:55 10/16/17 09:55 Phys Exam - Physical Examination Constitutional: NAD Neck: no JVD Respiratory: no wheezing Cardiovascular: RRR Gastrointestinal: soft Neurological: moves all 4 limbs Psychiatric: normal affect, A&O x 3 Dx/Plan (1) SVT (supraventricular tachycardia) Code(s): I47.1 - SUPRAVENTRICULAR TACHYCARDIA Status: Acute Comment: Resolved. One episode noticed last night. (2) COPD exacerbation Code(s): J44.1 - CHRONIC OBSTRUCTIVE PULMONARY DISEASE W (ACUTE) EXACERBATION Status: Acute Comment: At baseline , per patient and family.. (3) HTN (hypertension) Code(s): I10 - ESSENTIAL (PRIMARY) HYPERTENSION Status: Chronic Qualifiers: (4) Lung cancer Code(s): C34.90 - MALIGNANT NEOPLASM OF UNSP PART OF UNSP BRONCHUS OR LUNG Status: Chronic Comment: Treated with surgery many years ago. - Plan -: Stable. -: Home today.. * .
[2017-10-18 11:42] VITALS: BP 161/69
--- NOTE | 2017-10-18 11:57 | DIS ---
DATE OF ADMISSION: 10/16/2017 DATE OF DISCHARGE: 10/18/2017 ADMITTING DIAGNOSES: Chronic obstructive pulmonary disease exacerbation, history of lung cancer, maria c vated troponins. SERVICES MGR: Dao Cullen M.D. who mentioned that elevated troponin was not significant. PROCEDURE: Chest x-ray has been stable with administration of bronchodilator via nebulizer. Course of hospitalization is uncomplicated. Responded well to management. The patient is clinically stable at this time and being discharged home. DISCHARGE MEDICATIONS: Please see discharge medication reconciliation sheet. The patient is to foll ow up with primary care physician for 3 days. PHYSICAL EXAMINATION: Please refer to patient's medical record, progress note section.
[2017-10-18] MEDS ORDERED: PARoxetine 20 MG TAB PO SCH (21:00)
[2017-10-19] MEDS ORDERED: Furosemide 20 MG TAB PO SCH (09:00)
== END 2017-10-18 12:10 | disposition home or self-care (01) ==
LOC: ERS 09:36 → 2SW 12:34
PROVIDERS: ADMIT Hospitalist; ATTEND Hospitalist
DX: J44.1 Chronic obstructive pulmonary disease with (acute) exacerbation (principal); I10 Essential (primary) hypertension; R79.89 Other specified abnormal findings of blood chemistry; F17.210 Nicotine dependence, cigarettes, uncomplicated; Z88.0 Allergy status to penicillin; Z88.2 Allergy status to sulfonamides; Z88.1 Allergy status to other antibiotic agents; Z79.899 Other long term (current) drug therapy; Z90.2 Acquired absence of lung [part of]; Z90.710 Acquired absence of both cervix and uterus; Z90.89 Acquired absence of other organs; Z90.49 Acquired absence of other specified parts of digestive tract; Z98.890 Other specified postprocedural states; Z85.118 Personal history of other malignant neoplasm of bronchus and lung; Z99.81 Dependence on supplemental oxygen
CPT/HCPCS: 71045; 80053; 81003; 82553; 83605; 83880; 84484 ×2; 85025; 87804 ×2; 93005; 94640 ×7; 94760; 96365; 96366; 96375; 96376 ×3; 99285; G0378; 36415; J1956; J2920; J2930; J7620

== ENCOUNTER 2017-11-10 09:48 | Inpatient (IN) | payer MEDICARE, BC ==
--- NOTE | 2017-11-10 11:48 | RAD ---
CHEST TWO VIEWS: HISTORY: Mid back pain. Fall. COMPARISON: Radiograph from 08/29/2017. FINDINGS: Chronic layering with effusion is similar. There are some linear opacities in the right lung base. There is a new thoracic spine compression fracture, mid thoracic spine, likely at T6, with approximat lili 50% anterior height loss. IMPRESSION: 1. New thoracic spine compression fracture, which is felt likely to be at T6. There is approximatel y 50% anterior height loss. 2. Layering left effusion is similar. POS: TPC
[2017-11-10] MEDS ORDERED: HYDROcodone/Acetaminophen 5/325 mg Tablet ONE ×2 (11:50→16:12)
--- NOTE | 2017-11-10 11:51 | RAD ---
THORACIC SPINE THREE VIEWS STANDARD: HISTORY: Mid back pain. Recent falls. COMPARISON: Two views of the chest from 08/29/2017. FINDINGS: Mid thoracic spine compression fracture is present, which is felt to be at T6. ACDF hardware is appr eciated at the cervical spine. Mild reserved S-shaped scoliosis. IMPRESSION: New mid thoracic spine fracture, which is felt to be at T6, with approximately 50% anterior height lo ss. POS: T[facility]
--- NOTE | 2017-11-10 11:54 | RAD ---
LUMBAR SPINE THREE VIEWS: HISTORY: Pain. Falls. COMPARISON: Lumbar spine radiographs from 2013. FINDINGS: From 2013, the levoscoliosis of the lumbar spine has progressed. Large flowing lateral osteophytes a re present. Dense calcification of the aorta. There is some mild height loss at the L3 superior endplate, which may be chronic in nature. IMPRESSION: Worsening levoscoliosis, as well as L3 superior endplate height loss. POS: T[facility]
[2017-11-10 19:52] LABS: #Lymphocytes 0.5 thou/uL (1.20-3.40); #Monocytes 0.4 thou/uL (0.11-0.59); #Neutrophils 12.4 thou/uL (1.40-6.50); %Eosinophils 0.2 % (0.0-10.0); %Lymphocytes 3.4 % (21.0-51.0); %Monocytes 3.3 % (0.0-10.0); %Neutrophils 93.1 % (42.0-75.0); Mean Corpuscular HGB CONC 32.3 g/dL (32.0-36.0); Mean Corpuscular Hemoglobin 30.1 pg (27.0-31.0); Mean Corpuscular Volume 93.1 fl (81.0-99.0); Mean Platelet Volume 5.5 fL (7.4-10.4); Platelet Count 469 thou/uL (130-400); RBC Distribution Width 13.7 % (11.5-14.5); Red Blood Cell (RBC) Count 2.97 mill/uL (4.20-5.40); White Blood Cell (WBC) Count 13.3 thou/uL (4.8-10.8)
[2017-11-10 20:09] LABS: Anion Gap 16 mmol/L (10-20); BUN (Urea Nitrogen) 35 mg/dL (9.8-20.1); Calc. Creatinine Clearance 0 mL/min (70-130); Calcium 9.2 mg/dL (7.8-10.44); Carbon Dioxide 32 mmol/L (23-31); Chloride 86 mmol/L (98-107); Estimated GFR-MDRD 27; Glucose 160 mg/dL (83-110); Magnesium 2.3 mg/dL (1.6-2.6); Phosphorus 6.5 mg/dL (2.3-4.7); Potassium 3.8 mmol/L (3.5-5.1); Sodium 130 mmol/L (136-145)
[2017-11-10] MEDS ORDERED: Dextrose 50% Abboject 50 ML SYRINGE SLOW IVP PRN (21:04)
[2017-11-10] MEDS ORDERED: Dextrose 5% in Water 1,000 ML IV PRN (21:04)
[2017-11-10] MEDS ORDERED: Cyclobenzaprine 10 MG TAB PO PRN (21:09)
[2017-11-10] MEDS ORDERED: Fentanyl 100 MCG/2 ML VIAL SLOW IVP PRN (21:45)
[2017-11-10] MEDS: Acetaminophen 500 MG TAB PO SCH (21:51)
[2017-11-10] MEDS: traMADol HCl 50 MG TAB PO PRN (22:15)
[2017-11-10] MEDS ORDERED: PARoxetine 20 MG TAB PO SCH (22:45)
[2017-11-10] MEDS ORDERED: Gabapentin 100 MG CAP PO SCH (22:45)
--- NOTE | 2017-11-11 02:01 | CON ---
DATE OF CONSULTATION: 11/10/2017 ATTENDING PHYSICIAN: Noel Dyer M.D. HISTORY OF PRESENT ILLNESS: The patient is an 82-year-old female with a past medical history of COPD, CHF, who presented to the Emergency Department complaining of mid back pain. Patient reports mid back pain that began this afternoon after a mechanical fall. She was evaluated with plain films of the thoracic and lumbar spine which were notable for a T6 compression deformity. She denies any weakness to the extremities, numbness, tingling or bowel or bladder issues. I am seeing the patient at bedside. She has no complaints other than mid back pain. She has good strength in bilateral upper extremities and lower extremities. No reflex asymmetry or focal motor weakness is appreciated. She is having some pain over the mid thoracic region and paralumbar musculature pain with any movement. The Trauma Service is also at the bedside evaluating the patient as well. PAST MEDICAL HISTORY: History of lung cancer, COPD, CHF. PAST SURGICAL HISTORY: Lobectomy of the left upper lobe, appendectomy, hysterectomy, right wrist surgery, cervical fusion. SOCIAL HISTORY: The patient lives at home. She drinks socially. She smokes half pack per day. She does not use any drugs. ALLERGIES: The patient is allergic to BIAXIN, MORPHINE, PENICILLIN, and SULFA. REVIEW OF SYSTEMS: Per HPI. PHYSICAL EXAMINATION: VITAL SIGNS: BP is 120/63, heart rate is 66, respiration is 20, temperature is 97.5, patient is 94% on 3 liters. CONSTITUTIONAL: The patient is sitting comfortably in the bed in no acute distress. HEAD: Normocephalic, atraumatic. EYES: PERRLA. Extraocular movements are intact. ENT: Oral mucosa is pink, intact, moist. Patient has normal voice. NECK: Nontender to palpation of the cervical spine. Free active range of motion of the neck. No meningismus or nuchal rigidity. RESPIRATORY: The patient has symmetric chest expansion. She is breathing comfortably. No evidence of dyspnea. CARDIOVASCULAR: Regular rate and rhythm. BACK: Patient is tender to palpation over the mid thoracic spine and bilateral paraspinal musculature in this region, pain with any movement. MUSCULOSKELETAL: Free active range of motion of all extremities, no focal motor weakness is appreciated. No reflex asymmetry. NEUROLOGIC: Patient is alert and oriented x4, no neurologic deficits are appreciated. ASSESSMENT AND PLAN: The patient appears to have new onset T6 compression deformity status post mechanical fall. PLAN: She is neurologically intact on my exam. I do not anticipate any acute NS intervention. I have ordered a TLSO brace which patient should wear for all out of bed activities. The brace can be removed when patient is lying flat in the bed or briefly to shower. The patient will be admitted to the Trauma Service for pain control and may require rehabilitation following this admission. We will plan to follow up with the patient in 4 weeks with repeat set of x-rays. Please reach out to Neurosurgery Service for additional questions or concerns. R[facility]
[2017-11-11] MEDS: Acetaminophen 500 MG TAB PO SCH ×2 (04:19→09:04)
--- NOTE | 2017-11-11 06:21 | HP ---
DATE OF ADMISSION: 11/10/2017 ADMITTING PHYSICIAN: Abimael Gonzalez D.O. CONSULTING PHYSICIAN: Dr. Dyer, Neurosurgery. HISTORY OF PRESENT ILLNESS: The patient is an 82-year-old female who 2 days ago , was being assisted out of her bathtub when she felt pain in her upper back. She then recalled the pain had continued over the past 2 days. She fell last night and today with increase in pain significantly after the last fall. The patient typically is somewhat ambulatory with a rolling walker. She reports that she cannot walk very far until she has to sit down and rest. She has generalized weakness. She has not had any neurologic changes since the fall. She was evaluated in the ER with T6 compression fracture identified. Neurosurgery was consulted by the ER physician and patient was cleared to be seen as an outpatient in neurosurgery clinic. It was then attempted to get [facility] to see the patient for a direct admission from the ER to [facility]. The patient assessment in ER. The patient felt that she was not able to go to rehabilitation at this time because she felt that she was unable to do 3 hours of physical therapy and declined admission to [facility]. She has continued to have significant pain requiring analgesia. Trauma was then consulted for admission and management. This patient was seen in the ER. She reports that the pain is sometimes 10/10. It is described as a burning pain. Pain is exacerbated by movement. PAST MEDICAL HISTORY: Lung cancer, cervical cancer, CHF, COPD. PAST SURGICAL HISTORY: Left upper lobe lobectomy in 2001, appendectomy, hysterectomy, left wrist carpal tunnel, thyroidectomy. SOCIAL HISTORY: Smokes cigarettes half pack a day x66 years. Drinks 2 to 3 beers plus 2 to 3 cocktails daily. Drugs none. PRIMARY CARE PHYSICIAN: Dr. Leti Lea in [place], [place]. LINE TENDER FLAKEBOARD: Ramesh Parkinson M.D. HOME MEDICATIONS: 1. Prednisone 10 mg p.o. q.a.m. 2. Fluoxetine 20 mg p.o. at bedtime. 3. Prevacid 30 mg p.o. daily. 4. DuoNebs q.i.d. 5. Lasix 40 mg p.o. daily. 6. Cardizem 240 mg p.o. q.p.m. 7. Symbicort 2 puffs b.i.d. LABORATORY DATA: Pending. DIAGNOSTIC IMAGING: T6 spine fracture 50% height loss. REVIEW OF SYSTEMS: Constitutional: The patient denies chills, fever, recent weight loss. HEENT: Denies complaint. Respiratory: The patient is on 2 liters nasal cannula home O2. Denies cough. Reports occasional wheezes. Cardiovascular: Denies chest pain or palpitations. Gastrointestinal: Denies abdominal pain, nausea, vomiting, diarrhea or constipation. Musculoskeletal: Reports back pain between the scapula. Denies neck pain. Neurologic: Denies focal weakness, denies seizures. Skin: Denies any changes. PHYSICAL EXAMINATION: VITAL SIGNS: Blood pressure 143/65, Pulse 71, Respirations 20, O2 saturation 95 % on 2L O2 GENERAL: Elderly female, non-toxic appearing, no acute distress HEENT: Atraumatic, normocephalic PULMONARY: Coarse bilateral breath sounds, no respiratory distress. Respirations even, unlabored. CARDIOVASCULAR: Regular rate and rhythm, heart sounds normal ABDOMEN: Soft, non-tender, non-distended EXTREMITIES: Moves all extremities well. Neurovascular intact all extremities. SKIN: No rashes, no trauma noted. Warm, dry. ASSESSMENT: 1. 82 year old female status post ground level fall x2. 2. T6 compression fracture, no neurological deficits 3. COPD, currently treated with steroids 4. Generalized deconditioning 5. Acute traumatic pain PLAN: 1. Admit to hospital for pain control 2. PT/OT consult 3. Pt of Dr. Parkinson, Pulmonology. Will consult. 4. Pt evaluated by [facility] in ER. Pt not agreeable with rehab placement. 5. Case Management consult for discharge planning. The patient was reviewed with Dr. Gonzalez, attending trauma surgeon, who agrees with assessment and plan. This is Ashley Johnston NP, dictating H&P for Dr. Abimael Gonzalez. [facility]
[2017-11-11] MEDS ORDERED: predniSONE 20 MG TAB PO SCH ×3 (08:00→10:15)
[2017-11-11] MEDS: Mometasone/Formoterol 120 PUFF INHALER INH SCH ×2 (08:15→18:38)
[2017-11-11] MEDS ORDERED: Sodium Chloride 0.9% 1,000 ML IV SCH (08:45)
[2017-11-11] MEDS ORDERED: Spiriva 18 MCG CAP (Box of 5 Caps) INH SCH (09:00)
[2017-11-11] MEDS: Gabapentin 100 MG CAP PO SCH ×3 (09:04→22:26)
[2017-11-11] MEDS: Furosemide 20 MG TAB PO SCH ×2 (09:04→14:47)
[2017-11-11] MEDS: traMADol HCl 50 MG TAB PO PRN (09:05)
[2017-11-11 09:24] LABS: Anion Gap 11 mmol/L (10-20); BUN (Urea Nitrogen) 33 mg/dL (9.8-20.1); CK (CPK) 79 U/L (29-168); Calc. Creatinine Clearance 25 mL/min (70-130); Calcium 8.6 mg/dL (7.8-10.44); Carbon Dioxide 37 mmol/L (23-31); Chloride 87 mmol/L (98-107); Estimated GFR-MDRD 28; Glucose 124 mg/dL (83-110); Magnesium 2.3 mg/dL (1.6-2.6); Phosphorus 5.3 mg/dL (2.3-4.7); Potassium 3.9 mmol/L (3.5-5.1); Sodium 131 mmol/L (136-145)
--- NOTE | 2017-11-11 10:20 | PRG ---
DATE OF SERVICE: 11/11/2017 Seen and examined. Agree with Faith Macias's evaluation on 11/10/2017. An 82-year-old with severe COPD, had a recent fall and severe mid back pain. Plain films suggest a T 6 compression fracture. This should be treated nonsurgically in a TLSO brace and I discussed this in detail with the patient and her family. It can be off while she is flat in bed, but she does not sp end much time flat in bed due to her pulmonary issues. I will plan to follow the patient in 4 weeks with x-rays.
--- NOTE | 2017-11-11 11:09 | CON ---
DATE OF CONSULTATION: 11/11/2017 HISTORY: This is an 82-year-old female who is well-known to us, admitted to the hospital last night with severe excruciating back pain. She has been in and out of the hospital several times. In fact, she was recently admitted on 018 and discharged without notifying us with chronic obstructive pulmonary disease exacerbation, poss ibly congestive heart failure. Apparently there was some concern that she might have fallen down and injured her back. She was given ibuprofen, Flexeril, lidocaine patch without any relief. Pulmonary-martinez, she is on low flow O2 at home, continues to smoke a pack a day. She denies any coughing or wheezing. On most days the patient is barely able to walk even 20-30 feet without getting short of breath. PAST MEDICAL HISTORY: Pertinent for CHF, COPD, neuropathy, ongoing tobacco abuse. PAST SURGICAL HISTORY: Appendix, hysterectomy, tonsils. C-spine surgery, eye surgery, lung cancer s urgery. MEDICATIONS FROM HOME: Prednisone 10, Spiriva, Paxil 20, Prevacid 30, DuoNeb, Lasix 20, Cardizem 240 , Symbicort. ALLERGIES: PENICILLIN, CLARITHROMYCIN and SULFA. I reviewed the old medical records. History is obtained with the patient and 2 daughters at the [facility]. REVIEW OF SYSTEMS: Otherwise, 10-point negative. PHYSICAL EXAMINATION: GENERAL: She has got a brace. VITAL SIGNS: Sats are 88-90% on 4 liters, blood pressure 140/71, respirations 22, temperature 97. CHEST: Chest revealed decreased breath sounds, no wheezing. CARDIAC: Normal S1-S2. No gallops. ABDOMEN: Soft, no masses. LABORATORY: White count 13,000, H&H 9 and 27, platelet count was 469, creatinine 1.75, BUN 33. Ches t x-ray shows no acute infiltrates. There is a new mid thoracic spine fracture at T6 level. IMPRESSION: 1. Chronic obstructive pulmonary disease exacerbation, bronchitis. 2. End-stage chronic obstructive pulmonary disease. 3. Lung cancer, status post resection with ongoing tobacco abuse. 4. Congestive heart failure. 4. T6 fracture. PLAN: Continue neb treatments, continue Dulera. Continue prednisone. Comfort care. Home when pain is better. Please note this is a consultation note, 70 minutes of which 50% of the time I spent on direct patien t care.
[2017-11-11] MEDS: Heparin 5,000 UNITS/ML VIAL SC SCH ×2 (14:48→22:28)
[2017-11-11 16:13] LABS: CO2 Tension 67.7 mmHg (35.0-45.0)
[2017-11-11 16:14] LABS: Actual Bicarbonate (HCO3a) 32.5 mEq/L (22-26); Base Excess (BEa) 5.2 mEq/L (0 (+/-) 2.5); Hematocrit-ABG 30.6 % (36.0-47.0); O2 Tension (PaO2) 49.2 mmHg (80.0-100.0)
[2017-11-11 16:15] LABS: ALV-art Gradient 574.175 (0-20); Analyzer IN Cardio ER; Calcium, Ionized 1.1 mmol/L (1.12-1.30); Hemoglobin (Hb) 7.5 g/dL (12.0-16.0); Puncture Site RRA
--- NOTE | 2017-11-11 18:02 | PRG ---
DATE OF SERVICE: 11/11/2017 ATTENDING PHYSICIAN: Dr. Abimael Gonzalez. SUBJECTIVE: An 82-year-old female who was admitted last p.m. status post ground level fall with T6 compression fracture. She was admitted for pain control. Pain is reported as not being well controlled this morning with periods of pain being 10/10. Dr. Dyer of Neurosurgery has been consulted. Dr. Parkinson, Pulmonology, has been consulted. Dr. Parkinson is patient's regular project engineer chemicals. TLSO brace has been placed. She was evaluated yesterday in the ER by [facility] documentation liaison. She declined admission to rehab, feeling that she cannot participate in 3 hours of physical therapy due to generalized weakness right now. OBJECTIVE: VITAL SIGNS: Temperature 98.1, pulse 85, respirations 18, O2 sat 92% on 4 liters O2. Blood pressure 133/77. GENERAL: Elderly female, sitting up in bed, TLSO brace in place. Obvious pain with movement or palpation of spine. HEENT: Atraumatic, normocephalic. PULMONARY: Respirations even, unlabored. No respiratory distress. CARDIOVASCULAR: Regular rate and rhythm. Heart sounds normal. ABDOMEN: Soft, nontender, nondistended. NEUROLOGIC: GCS of 15. Awake, alert, oriented x3. No focal weakness. ASSESSMENT: 1. Status post ground level fall. 2. T6 fracture. 3. Chronic obstructive pulmonary disease. 4. Generalized weakness and deconditioning. PLAN: 1. Continue TLSO brace while out of bed or not lying flat per Dr. Dyer's recommendations. 2. Continue treatment of COPD per Dr. Parkinson's recommendations. 3. PT, OT evaluation. 4. Case management consult for discharge planning. The patient has already declined to go to [facility]. At this point, family indicates that a swing bed would be the best option close to their home, which is in [place]. We will discuss with case management, consider [place] for a swing bed placement if possible. 5. Discontinue scheduled Tylenol. Start scheduled [place] for better pain control. We will reassess this afternoon. The patient was seen and examined with Dr. Gonzalez, attending trauma surgeon, who agrees with the assessment and plan. This is Ashley Johnston, nurse practitioner, dictating a daily progress note for Dr. Abimael Gonzalez. [facility]
[2017-11-11] MEDS: Sodium Chloride 0.9% 1,000 ML IV SCH (18:18)
--- NOTE | 2017-11-11 18:50 | PRG ---
DATE OF SERVICE: 11/11/2017 ATTENDING PHYSICIAN: Dr. Abimael Gonzalez. SUBJECTIVE: Patient was seen earlier on rounds today. Pain medication was changed to [place] as the patient was still having intense upper back pain. She was also seen by Dr. Parkinson, her primary tele grout sewer line repairer. At that time, her respirations were even and unlabored. O2 saturations were approximately 90 on 4 liters O2. Daughters were at bedside. Physical therapy worked with the patient today. Received a call from the nurse this afternoon. Apparently she has required increasing oxygen to keep sats above 90. Dr. Parkinson has been at bedside. She was placed on BiPAP earlier today. She has remained adamant that she does not want to go on mechanical ventilator but was placed on BiPAP while and other family members arrived from home. It was then discussed among patient and family members that the patient does not want to pursue any aggressive treatment including BiPAP. She was made DNR by Dr. Parkinson. This evening, Dr. Gonzalez and I were at bedside. She is continuing her request of no more BiPAP and to go outside to smoke a cigarette. She also is requesting a superintendent power's presence to bedside. She was assisted by family to wheelchair and then back to the bed. At this time, we will proceed with care per the patient and family wishes. The patient was seen and examined with Dr. Gonzalez. [facility]
[2017-11-11] MEDS ORDERED: PARoxetine 20 MG TAB PO SCH (21:00)
--- NOTE | 2017-11-11 21:00 | PRG ---
DATE OF SERVICE: 11/11/2017. SUBJECTIVE: Coco Salas suddenly became acutely short of breath, became lethargic, not arousable. Sats were 81% on a nonrebreather. Nurses called me. The patient in the past stated she does not want to be intubated. In fact, a chest x-ray this morning did not show infiltrates or effusion. A stat blood gas shows a pO2 of only 49, pCO2 of 67, pH of 7.30 consistent with respiratory failure and CO2 retention. Baseline creatinine was 1.75. OBJECTIVE: GENERAL: Otherwise, on examination, she is lethargic, but arousable. VITAL SIGNS: Pulse 80; respirations 20, shallow; blood pressure 109/57. CHEST: Decreased breath sounds. No wheezing. CARDIAC: Normal S1, S2. ASSESSMENT: 1. Acute on chronic respiratory failure. 2. Renal failure. 3. T6 fracture 4. Recent fall. PLAN: I had a lengthy discussion with the patient's 2 daughters who were at the bedside. She clearly is a DNR. They did not want intubation, but they wanted to try BiPAP until the patient's comes, who was about 30 minutes from here. Nurses on the surgical floor have agreed to keep the patient on BiPAP until the arrives. Thereafter, they want to continue BiPAP and she will be transferred down to the MICU. I have increased the dose of steroids. I have ordered a chest x-ray, increased the frequency of her nebulizer treatments. Once again, she does not want to be intubated. Clearly, her condition has worsened since last 7-8 hours. Once again, acute on chronic respiratory failure secondary to COPD, CHF, severe deconditioning. DNR, comfort care. ONE HALF CC TIME MTDD
[2017-11-12 04:52] LABS: Anion Gap 14 mmol/L (10-20); BUN (Urea Nitrogen) 35 mg/dL (9.8-20.1); Calc. Creatinine Clearance 30 mL/min (70-130); Calcium 8.5 mg/dL (7.8-10.44); Carbon Dioxide 33 mmol/L (23-31); Chloride 89 mmol/L (98-107); Estimated GFR-MDRD 34; Glucose 172 mg/dL (83-110); Magnesium 2.1 mg/dL (1.6-2.6); Phosphorus 4.6 mg/dL (2.3-4.7); Potassium 3.9 mmol/L (3.5-5.1); Sodium 132 mmol/L (136-145)
[2017-11-12] MEDS: Mometasone/Formoterol 120 PUFF INHALER INH SCH (07:45)
[2017-11-12] MEDS ORDERED: predniSONE 20 MG TAB PO SCH (08:00)
--- NOTE | 2017-11-12 08:27 | RAD ---
PORTABLE CHEST: Date: 11/12/17 COMPARISON: 08/05/17. HISTORY: Dyspnea. FINDINGS: Heart size is enlarged. There are chronic lung changes seen. There has been development of some pleur al and parenchymal changes in the left base suggesting some development of effusion with infiltrate. IMPRESSION: 1. Chronic lung change. 2. Development of some left-sided pleural effusion with associated parenchymal change suggestive of some infiltrate. POS: [facility]
[2017-11-12] MEDS: Furosemide 20 MG TAB PO SCH (08:46)
[2017-11-12] MEDS: Gabapentin 100 MG CAP PO SCH ×2 (08:46→15:21)
[2017-11-12] MEDS: Heparin 5,000 UNITS/ML VIAL SC SCH ×2 (08:46→15:21)
[2017-11-12] MEDS ORDERED: Cefdinir 300 MG CAP PO SCH (09:00)
[2017-11-12] MEDS: HYDROcodone/Acetaminophen 5/325 mg Tablet PO PRN ×2 (09:07→15:26)
--- NOTE | 2017-11-12 12:29 | PRG-2 ---
DATE OF SERVICE: 11/12/2017 ATTENDING PHYSICIAN: Dr. Abimael Gonzalez. SUBJECTIVE: The patient is currently comfortable in no acute distress, complains of some shortness o f breath. She also states that her pain is well controlled and currently says she is not in pain. Y esterday, the patient needed BiPAP until her family was able to arrive. It was decided at that time in addition to being a DNR status at this point, patient would seek comfort care only. Since yesterd ay, there have been no additional acute events. OBJECTIVE: VITAL SIGNS: Temperature 98.1, pulse 89, respiratory rate 20, oxygen sat 80 on 4 liters, blood press ure is 138/63. GENERAL: Alert and oriented, talkative, comfortable. HEENT: Atraumatic, normocephalic. CHEST: Decreased air movement bilaterally. CARDIOVASCULAR: Regular rate and rhythm. No murmurs. GENITOURINARY: Nontender, nondistended. ASSESSMENT: 1. Status post ground level fall. 2. T6 fracture. 3. Chronic obstructive pulmonary disease. 4. Chronic respiratory failure. PLAN: 1. We will use TLSO brace as tolerated by the patient, goal now is comfort care. 2. Continue treatments for chronic obstructive pulmonary disease following Dr. Parkinson's recommendation s. Patient is currently getting Solu-Medrol 40 mg IV q.6 hours and scheduled breathing treatments. 3. Continue PT and OT. 4. Discharge planning. Currently plan for the patient is to discharge home with hospice. Elier cannon is working on the case. 5. Pain meds had been scheduled or [place] had been scheduled since yesterday; however, it does not ap pear that the patient has been taking them and pain is controlled. Continue to provide pain medicati on as necessary for comfort care. This patient was seen and assessed by Dr. Gonzalez, who agrees with t barry above assessment and plan.
[2017-11-12] MEDS: Sodium Chloride 0.9% 1,000 ML IV SCH (13:25)
--- NOTE | 2017-11-12 13:57 | PRG ---
DATE OF SERVICE: 11/12/2017 SUBJECTIVE: To my surprise this morning, she is much more awake and responsive. IMAGING DATA AND LABORATORY DATA: X-ray shows left-sided pneumonia. Creatinine 1.46. They are considering hospice care. OBJECTIVE: VITAL SIGNS: Sats are ___88__ on 4 liters, pulse 88, blood pressure 138/63. CHEST: Reveals bilateral rhonchi and crackles. CARDIAC: Normal S1, S2. ABDOMEN: Soft, no masses. ASSESSMENT AND PLAN: End-stage chronic obstructive pulmonary disease, T6 fracture, left-sided pneumonia. Empiric oral antibiotics. They are considering going home tomorrow. We will follow. [facility]
[2017-11-12 15:47] VITALS: BP 134/61; TEMP 98.2
--- NOTE | 2017-11-12 23:04 | DIS ---
DATE OF ADMISSION: 11/10/2017. DATE OF DISCHARGE: 11/12/2017. ADMITTING PHYSICIAN: Abimael Gonzalez DO DISCHARGING PHYSICIAN: Abimael Gonzalez DO CONSULTING PHYSICIANS: Dr. Dyer, Neurosurgery; Dr. Parkinson, Pulmonology REASON FOR HOSPITALIZATION: Fall with back pain. HOSPITAL DIAGNOSES: 1. Status post ground level fall. 2. T6 compression fracture, no neurological deficit. 3. Chronic obstructive pulmonary disease exacerbation, bronchitis. 4. End-stage chronic obstructive pulmonary disease. 5. Lung cancer, status post resection with ongoing tobacco abuse. 6. Congestive heart failure. PROCEDURES: None. PATIENT'S DISCHARGE CONDITION: Terminal, home with hospice. DISCHARGE MEDICATIONS: The patient is not being discharged with any new prescriptions. She may resume all her home medications. All further orders at the discretion of Dr. Dinesh Dobson of hospice. BRIEF HISTORY OF HOSPITALIZATION: The patient is an 82-year-old female with end -stage COPD and lung cancer with prior lobectomy, who 4 days ago was getting out of the bathtub when she felt a pain in her upper back. She subsequently had 3 ground level falls with an increased pain in her back. She was transported to [facility] where a T6 compression fracture was identified. She was admitted to the hospital by Trauma Services. Neurosurgery was consulted and a TLSO brace was placed. The patient was previously a patient of Dr. Parkinson for COPD. Dr. Parkinson was consulted and saw the patient for continued management of her chronic pulmonary issues. On hospital day #1, she had a sudden and acute change in her respiratory status. She was seen by Dr. Parkinson and Dr. Gonzalez. She clearly had worsened during the day to the point that she was requiring BiPAP for respiratory support. She expressed to all members of the healthcare team that she was amenable to BiPAP until her and family could arrive to her bedside. She adamantly did not want to be intubated and preferred to be removed from BiPAP after her family got to her bedside. Once her family was able to get to bedside, she requested that BiPAP be removed. She apparently rested comfortably throughout the night on hospital day 1. On hospital day 2, she and family requested hospice care. Case management arranged hospice care with [facility]. Ms. Salas and her family requested to return to Ms. Salas's home via POV and hospice will assume care upon discharge. She will be under the care of Dr. Dinesh Dobson. The patient was seen and examined with Dr. Gonzalez, who agrees with the assessment and plan. This is Ashley Johnston, nurse practitioner, dictating a discharge summary for Dr. Abimael Gonzalez. [facility]
[2017-11-13] MEDS ORDERED: Furosemide 20 MG TAB PO SCH (09:00)
== END 2017-11-12 16:15 | disposition hospice, home (50) | DRG 551 ==
LOC: ERS 09:48 → SURG A 18:02 → SJJU 11-11 08:25
PROVIDERS: ADMIT Surgery; ATTEND Surgery
DX: S22.059A Unspecified fracture of T5-T6 vertebra, initial encounter for closed fracture (principal); J18.9 Pneumonia, unspecified organism; J96.20 Acute and chronic respiratory failure, unspecified whether with hypoxia or hypercapnia; J96.10 Chronic respiratory failure, unspecified whether with hypoxia or hypercapnia; N19 Unspecified kidney failure; J44.1 Chronic obstructive pulmonary disease with (acute) exacerbation; C34.90 Malignant neoplasm of unspecified part of unspecified bronchus or lung; I50.9 Heart failure, unspecified; Z85.41 Personal history of malignant neoplasm of cervix uteri; F17.210 Nicotine dependence, cigarettes, uncomplicated; Z79.52 Long term (current) use of systemic steroids; Z66 Do not resuscitate; Z51.5 Encounter for palliative care; M43.9 Deforming dorsopathy, unspecified
CPT/HCPCS: 36415; 71045; 71046; 72072; 72100; 80048; 82550; 82805; 83735; 84100; 85025; 94640; 94660; A4216; G8978-GP-CM; G8979-GP-CL; G8987-GO-CM; G8988-GO-CK; J1644; J2920; J3010; J7506; J7620